=== PATIENT | female | born 1985 | race Caucasian/White ===

== ENCOUNTER 2016-07-02 01:44 | Inpatient (IN) | payer OTHER ==
[2016-07-02] MEDS ORDERED: NALOXONE 0.4 MG/ML 1 ML VIAL IV PRN (02:09)
[2016-07-02] MEDS ORDERED: ACETAMINOPHEN TAB 325 MG TAB PO PRN (02:09)
--- NOTE | 2016-07-02 02:18 | ED ---
Seizure HPI - General Stated Complaint: SEIZIRE Time Seen by Provider: 07/02/16 01:47 - Related Data Previous Rx's Medication Instructions Recorded Docusate [Colace] 100 mg PO DAILY #30 cap 08/23/15 FLUoxetine HCL [PROzac] 20 mg PO DAILY #20 cap 08/23/15 levETIRAcetam [Keppra] 1,000 mg PO Q12HR #60 tab 08/23/15 Allergies Allergy/AdvReac Type Severity Reaction Status Date / Time lorazepam [From Ativan] Allergy Anaphylaxis Verified 08/19/15 14:37 Review of Systems ROS Statement: Those systems with pertinent positive or pertinent negative responses have been documented in the HPI. ROS Other: All systems not noted in ROS Statement are negative. Past Medical History Past Medical History: Seizure Disorder Additional Past Medical History / Comment(s): Seizure disorder, anxiety, depression, bipolar disorder, chronic headache, right shoulder pain, osteoarthritis, scoliosis,"chronic backpain","head trauma d/t fall during seizure, stated has had 2 strokes not sure of dates, GI reflux, self-mutilation and the patient has had previous history of cutting herself History of Any Multi-Drug Resistant Organisms: MRSA Date of last positivie culture/[facility]: [facility] MDRO Source:: back Past Surgical History: Section Additional Past Surgical History / Comment(s): x3 c-sections,ovarian cyst removed,hemorrhoidectomy Past Anesthesia/Blood Transfusion Reactions: No Reported Reaction Additional Past Anesthesia/Blood Transfusion Reaction / Comment(s): clausterphobia Past Psychological History: Anxiety, Bipolar, Depression Additional Psychological History / Comment(s): pt stated feels depressed daily no interest in things does'nt want to eat,has trouble sleeping feels hopeless for present and future but stated does'nt have any thoughts of harming self. lives with 3 kids and fiancee.is independant,no outside services. Smoking Status: Current every day smoker Past Alcohol Use History: Rare Additional Past Alcohol Use History / Comment(s): has smoked for 13 years ,1/2 ppd. rare alcohold use Past Drug Use History: None Reported - Past Family History Father History Unknown: Yes Mother History Unknown: Yes Course Vital Signs 07/02/16 01:58 Temperature 97.3 F L Pulse Rate 64 Respiratory 14 Rate Blood Pressure 113/62 O2 Sat by Pulse 100 Oximetry Disposition Clinical Impression: Seizure Disposition: ADMITTED IP TO THIS HOSP Condition: Fair Referrals: Nonstaff,Physician [Primary Care Provider] - 1-2 days
[2016-07-02] MEDS ORDERED: LORazepam 2 MG/ML SYRINGE IV PRN (04:46)
[2016-07-02] MEDS: SODIUM CHLORIDE 0.9% 1,000 ML IV SCH (06:00)
[2016-07-02] MEDS ORDERED: HYDROcodone/APAP 5-325MG 1 EACH TAB PO PRN (07:27)
--- NOTE | 2016-07-02 08:40 | XR ---
EXAMINATION TYPE: XR cervical spine comp DATE OF EXAM: 07/02/2016 8:25 AM TECHNIQUE: Frontal, lateral, oblique, and open mouth view of the cervical spine are obtained. HISTORY: seizure with falls neck pain. COMPARISON: Outside CT cervical spine from yesterday FINDINGS: The cervical spine is visualized in its entirety from C1 thru the top of T1 level, it is s atisfactory in alignment without evidence of acute fracture or dislocation. The pre-vertebral soft t issue appears within normal limits. The C1-C2 articulation is within normal limits on the open mouth view. Vertebral body heights and disc space heights are maintained. The oblique images are within n ormal limits. Overlying soft tissue is unremarkable. IMPRESSION: No acute fracture or dislocation is seen in the cervical spine. No significant change fr om outside CT.
--- NOTE | 2016-07-02 08:42 | XR ---
EXAMINATION TYPE: XR orbit complete bilateral DATE OF EXAM: 07/02/2016 8:26 AM COMPARISON: CT brain August 19, 2015. Outside CT from yesterday. HISTORY: Seizure with left-sided orbital injury last night TECHNIQUE: Complete orbital series with both lateral projections as well as water's and Fernandez fron yesenia projection FINDINGS: Orbital floors and sims are intact. Nasal septum is slightly deviated to left of midline. No suspicious soft tissue swelling is seen. No suspicious paranasal sinus opacification is noted. IMPRESSION: No acute displaced orbital fracture identified.
[2016-07-02] MEDS: levETIRAcetam 500 MG TAB PO SCH ×2 (08:54→21:32)
[2016-07-02] MEDS ORDERED: FLUoxetine HCL 20 MG CAP PO SCH (09:00)
[2016-07-02] MEDS ORDERED: DOCUSATE 100 MG CAP PO SCH (09:00)
[2016-07-02 09:30] LABS: Basophils # (A) 0.1 k/uL (0-0.2); Basophils % (A) 1 %; CH 22.2; CHCM 29.3; Eosinophils # (A) 0.3 k/uL (0-0.7); Eosinophils % (A) 4 %; HCT 28.6 % (34.0-46.0); HDW 2.88; HGB 8.5 gm/dL (11.4-16.0); Hypochromasia Marked; Luc # (Auto) 0.17; Luc % (Auto) 2; Lymphocytes # (A) 2.9 k/uL (1.0-4.8); Lymphocytes % (A) 36 %; MCH 22.7 pg (25.0-35.0); MCHC 29.9 g/dL (31.0-37.0); Mean Platelet Volume 6.9; Microcytosis Slight; Monocytes # (A) 0.4 k/uL (0-1.0); Monocytes % (A) 5 %; Neutrophils # (A) 4.2 k/uL (1.3-7.7); Neutrophils % (A) 53 %; RBC 3.76 m/uL (3.80-5.40); RDW 15.8 % (11.5-15.5); WBC (Perox) 8.31
[2016-07-02 10:16] LABS: ALT 29 U/L (9-52); AST 18 U/L (14-36); Alkaline Phosphatase 61 U/L (38-126); Anion Gap 5 mmol/L; Blood Urea Nitrogen 13 mg/dL (7-17); Calcium 8.3 mg/dL (8.4-10.2); Carbon Dioxide 24 mmol/L (22-30); Chloride 113 mmol/L (98-107); Glucose 82 mg/dL (74-99); Non-African American GFR(MDRD) >60 (>60 ml/min/1.73 sqM); Potassium 4.1 mmol/L (3.5-5.1); Sodium 142 mmol/L (137-145); Total Bilirubin 1.1 mg/dL (0.2-1.3); Total Protein 5.7 g/dL (6.3-8.2)
--- NOTE | 2016-07-02 11:58 | HP ---
DATE OF ADMISSION: CHIEF COMPLAINT: A 30-year-old white female with acute seizure and traumatic head injury after falling after having seizure at home and was admitted with status epilepticus. States she came to the emergency room due to seizures and status epilepticus. Apparently she fell and hit her head but no x-rays were done. She had intense swelling and pain around her orbit and neck pain. No chest pain or shortness of breath. No lightheadedness, syncope. Thinks she takes Colace, Prozac, Keppra. ALLERGIES: ATIVAN. REVIEW OF SYSTEMS: Fourteen-point review of systems negative except for HPI. PAST MEDICAL HISTORY: Seizure disorder, anxiety, depression, bipolar, chronic scoliosis, chronic headache, right shoulder pain, osteoarthritis, seizures. GI reflux, MRSA. SURGERIES: x3. Ovarian cyst, hemorrhoidectomy. States she does not have any thoughts of harming herself. Lives with three kids and fiancee. She is independent. No outside source. Is current every day smoker. States she has been compliant with her seizure medications. Half pack of cigarettes a day for many years. Rare alcohol use. FAMILY HISTORY: Father ( ). Temperature is 97.3, pulse 64, respiratory 14 to 12, blood pressure 113/62. O2 is 100% on room air. She is thin, cachectic. Some mild tenderness periorbital area and cervical. CARDIOVASCULAR: S1 and S2. LUNGS: Clear. GI: Soft. HEMATOLOGIC: Negative Homans. ASSESSMENT: 1. Acute seizure, status epilepticus. 2. Facial contusions and cervical contusion. Order x-rays, continue with seizure medication replacement. Await Dr. Russo. Ativan is not working for seizures will give her Valium instead.
[2016-07-02 12:06] LABS: % Iron Saturation 10.1 % (20-50)
[2016-07-02] MEDS: DIAZEPAM 5 MG/ML 2 ML SYRINGE IVP PRN ×2 (12:42→12:58)
[2016-07-02] MEDS ORDERED: levETIRAcetam IV 1,000 MG in SALINE 1 100ML.BAG IVPB STA (13:23)
[2016-07-02] MEDS ORDERED: VALPROATE SODIUM 1,000 MG in SODIUM CHLORIDE 0.9% 50 ML IVPB STA (13:48)
[2016-07-02] MEDS ORDERED: PHENobarbital SODIUM 65 MG/ML 1 ML VIAL IV STA (13:49)
[2016-07-02] MEDS ORDERED: PROPOFOL 50 ML IV ONE ×3 (14:01→20:15)
[2016-07-02] MEDS ORDERED: SUCCINYLCHOLINE CHLORIDE 100 MG/5 ML SYR IV ONE (14:03)
[2016-07-02] MEDS ORDERED: CISATRACURIUM 2 MG/ML 5 ML VIAL IV ONE (14:11)
--- NOTE | 2016-07-02 14:51 | P.CNNES ---
History of Present Illness Consult date: 07/02/16 Reason for Consult: Patient admitted with seizure disorder. History of Present Illness: This patient is a 30-year-old right-handed white female who was admitted to [facility] yesterday after having a seizure at her place of employment. He shouldn't has been working at [employer] and according to the had a seizure while at work. She was taken to the emergency room at [facility] where she underwent a computed tomography scan of the brain. CAT scan of the brain failed to reveal any evidence of acute stroke or hemorrhage. There was no evidence of intracerebral hemorrhage. She was then transferred to the emergency room at [facility] for further neurological evaluation. She was seen in the ER by Dr. Javier. She subsequently underwent x -ray of the cervical spine and orbits both of which came back negative for any evidence of acute fracture or dislocation. She was admitted to the hospital yesterday. This morning she was alert and oriented 3. She was speaking with the nursing staff. At about 10 AM the patient went into a generalized tonic- clonic seizure that lasted 5-10 seconds in duration. She was given 10 mg of Valium. Shortly thereafter she went into a second breakthrough seizure lasting 10 seconds in duration. She was arching and seem to be very rigid. She continued to have frequent spells and was given a second dose of Valium 10 mg IV push. Patient is unable to take Ativan as she has an ALLERGY to this medication. According to the the Ativan actually worsens her seizures. Since the patient continued to have frequent and recurrent seizures she was found to have evidence of status epilepticus. She was intubated and transferred to the intensive care unit where she is now closely being monitored. According to the she has not had frequent seizures in several years. She has undergone extensive epilepsy monitoring at [facility] a few years ago. At that time she was taken off of all of her anticonvulsants except Keppra. She apparently does take her Keppra on a regular basis at thousand milligrams twice a day. The patient was started on IV Depacon as she continued to have frequent seizures. We will maintain her on IV Depacon at thousand milligrams IV piggyback every 12 hours. She is to continue on her current dose of Keppra thousand milligrams IV piggyback every 12 hours. She was given 1 dose of phenobarbital in the ICU of 30 mg for treatment of status epilepticus. A routine EEG has been ordered and we're waiting the tech to complete the study this morning. The patient has been placed on Diprivan by Dr. Flores and for further management of her intubation. Her respiratory status at this time appears to be stable. She will likely require a chest x-ray as well. We will continue the patient on current anticonvulsant medications in IV form. We will obtain a stat EEG today and this will be reviewed. Patient does have a history of pseudoseizures however frequent repetitive seizures today are more suggestive of status epilepticus. Her overall prognosis at this time remains very guarded. Case was discussed at length today with the patient's at bedside. He was updated on her very critical condition at this time. We will continue close neurological follow-up this patient in the intensive care unit. Case was discussed at length with the patient's . He was updated on her overall neurological status and condition at this time. Neurology is now been consulted for further evaluation and recommendations. Review of Systems Constitutional: Denies chills, Denies fever Eyes: denies blurred vision, denies pain Ears, nose, mouth and throat: Denies headache, Denies sore throat Cardiovascular: Denies chest pain, Denies shortness of breath Respiratory: Denies cough Gastrointestinal: Denies abdominal pain, Denies diarrhea, Denies nausea, Denies vomiting Genitourinary: Denies dysuria, Denies hematuria Musculoskeletal: Denies myalgias Integumentary: Denies pruritus, Denies rash Neurological: Reports change in mentation, Reports confusion (Review), Reports convulsions, Reports head injury, Reports seizures (Violent Karan the patient reported to the ICU for the floor and needed to get the EEG in her status and Did speak to someone and over now I don't know who was on-call nurse will yet wearing ICU 611), Denies numbness, Denies weakness Psychiatric: Denies anxiety, Denies depression Endocrine: Denies fatigue, Denies weight change Past Medical History Past Medical History: Seizure Disorder Additional Past Medical History / Comment(s): Seizure disorder, anxiety, depression, bipolar disorder, chronic headache, right shoulder pain, osteoarthritis, scoliosis,"chronic backpain","head trauma d/t fall during seizure, stated has had 2 strokes not sure of dates, GI reflux, self-mutilation and the patient has had previous history of cutting herself History of Any Multi-Drug Resistant Organisms: MRSA Date of last positivie culture/infection: 2013, (questionably at [facility], per patient) MDRO Source:: back Past Surgical History: Section Additional Past Surgical History / Comment(s): x3 c-sections,ovarian cyst removed,hemorrhoidectomy Past Anesthesia/Blood Transfusion Reactions: No Reported Reaction Additional Past Anesthesia/Blood Transfusion Reaction / Comment(s): clausterphobia Past Psychological History: Anxiety, Bipolar, Depression Additional Psychological History / Comment(s): pt stated feels depressed daily no interest in things does'nt want to eat,has trouble sleeping feels hopeless for present and future but stated does'nt have any thoughts of harming self. lives with 3 kids and fiancee.is independant,no outside services. Smoking Status: Current every day smoker Past Alcohol Use History: Rare Additional Past Alcohol Use History / Comment(s): has smoked for 13 years ,1/2 ppd. rare alcohold use Past Drug Use History: None Reported - Past Family History Father History Unknown: Yes Family Medical History: Congestive Heart Failure (CHF) Mother History Unknown: Yes Medications and Allergies Home Medications Medication Instructions Recorded Confirmed Type Docusate [Colace] 100 mg PO BID 07/02/16 07/02/16 History FLUoxetine HCL [PROzac] 40 mg PO DAILY 07/02/16 07/02/16 History Gabapentin [Neurontin] 300 mg PO TID 07/02/16 07/02/16 History hydrOXYzine PAMOATE [Vistaril] 50 mg PO TID 07/02/16 07/02/16 History Allergies Allergy/AdvReac Type Severity Reaction Status Date / Time lorazepam [From Ativan] Allergy Anaphylaxis Verified 07/02/16 08:24 tramadol Allergy Rash/Hives Verified 07/02/16 05:44 Physical Examination - Vital Signs Vital Signs: Vital Signs Temp Pulse Pulse Resp BP BP Pulse Ox 07/02/16 07:00 98.7 F 59 L 16 98/63 99 07/02/16 05:40 97.8 F 70 16 105/69 99 07/02/16 04:51 98 F 72 18 111/75 98 07/02/16 04:00 64 16 99/62 97 Intake and Output 07/01/16 07/02/16 07/02/16 22:59 06:59 14:59 Intake Total 0 Balance 0 Intake: Oral 0 Other: Voiding Method Toilet Weight 62.142 kg - Constitutional General appearance: average body habitus, cooperative - EENT EENT: PERRL, mucous membranes moist - Respiratory Respiratory: lungs clear, normal breath sounds - Cardiovascular Cardiovascular: regular rate, normal S1, normal S2 Extremities: no peripheral edema bilaterally - Gastrointestinal Gastrointestinal: normoactive bowel sounds - Integumentary Integumentary: normal - Neurologic Cranial nerve examination: PERRL, EOMI, V1/V2/V3 grossly intact, tongue midline , intact gag reflex, intact corneal reflex, normal palatal elevation Speech examination: intact Sensorimotor examination: intact, seizure Detailed motor examination: grossly full strength in all extremities Motor examination - right side: 5/5: biceps, triceps, wrist flexion, wrist extension, cardiovascular rn, hip flexors, knee extensors, dorsiflexion, toe extension (EHL) , plantarflexion Motor examination - left side: 5/5: biceps, triceps, wrist flexion, wrist extension, cardiovascular rn, hip flexors, knee extensors, dorsiflexion, toe extension (EHL) , plantarflexion Detailed sensory examination: intact Posture: rigid Reflex and gait examination: intact Reflexes: 1+: ankle, bicep, knee, tricep - Musculoskeletal Musculoskeletal: no pain - Psychiatric Psychiatric: mood/affect appropriate, cooperative Results - Laboratory Findings CBC and BMP: 07/02/16 08:52 07/02/16 08:52 Assessment and Plan (1) 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 According to the who provided the medical history she has a history of underlying seizure disorder. She has been extensively evaluated for seizures at several institutions including [facility] epilepsy monitoring unit. She was diagnosed with underlying mixed seizure disorder. She has been taking Keppra 1000 mg twice a day on a regular basis for seizure prophylaxis. She had a breakthrough seizure yesterday at work and was taken to be local emergency room at [facility]. Patient was then transferred to the current [facility] for further management. Patient has been taking Keppra on a regular basis. Her blood level was drawn this morning and is still pending. Soon after admission the patient was noted to be quite alert and oriented as per the nursing staff on the fourth floor. She was answering questions appropriately. Early this morning at about 10 AM the patient had a generalized tonic-clonic seizure that lasted 10 seconds in duration. This was followed by several other breakthrough seizures. She was given Valium 10 mg 2. The patient continued to have frequent breakthrough seizures which short interval of normal time in between. She developed symptoms of acute status epilepticus. She was transferred to the intensive care unit now and has been intubated. The patient did undergo a computed tomography scan of the brain yesterday at [facility]. This CAT scan was reported negative for any acute changes of stroke or acute hemorrhage. She is now been transferred to the intensive care unit and is intubated. Case was discussed today with Dr. baker in. She has been placed on Diprivan. Her seizure activity has now abated. She will require close neuro monitoring in the intensive care unit. As noted she does have a history of pseudoseizures in the past as well as generalized epilepsy. She has been on various other anticonvulsants over the year but is currently only on monotherapy with Keppra. We will continue the patient on IV Keppra. We will also add IV Depacon. She is now been placed on Diprivan as per the recommendations of Dr. baker and for further management of her pulmonary status. We will continue close neurological follow-up this patient in the intensive care unit. Case was discussed earlier today with the patient's at bedside. All of his questions answered. He is aware of her guarded condition. Her overall prognosis at this time remains very guarded. Time with Patient: Greater than 30
[2016-07-02 15:03] LABS: ABG HCO3 21 mmol/L (21-25); ABG PCO2 35 mmHg (35-45); ABG PO2 241 mmHg (83-108); ABG TCO2 22 mmol/L (19-24)
[2016-07-02 15:04] LABS: ABG Base Excess -2.6 mmol/L
[2016-07-02 15:30] LABS: Appearance,Urine Clear (Clear); Bilirubin,Urine Negative (Negative); Glucose,Urine (UA) Negative (Negative); Ketones,Urine Negative (Negative); Leukocyte Esterase,Urine Negative (Negative); Nitrite,Urine Negative (Negative); Protein,Urine Negative (Negative); Specific Gravity,Urine 1.014 (1.001-1.035); UA Billing (MACRO vs. MICRO) CHEM; Urobilinogen,Urine <2.0 mg/dL (<2.0)
--- NOTE | 2016-07-02 16:11 | P.CNPUL ---
History of Present Illness Consult date: 07/02/16 Chief complaint: Status epilepticus History of present illness: 89-year-old female patient, known history of seizure disorder, was brought into the intensive care unit with status epilepticus. I was asked to attend on this patient emergently knowing that she was actively seizing. I was told that she has been on and off seizing for the past 1 hour. Immediately after my arrival to the ICU, I saw this patient actively seizing with tonic clonic seizure activity. I was also informed by the nurses that the patient had already received a total of 20 mg of Valium without any improvement. At that point, I immediately put the patient on Diprivan. She was given a total of 50 mg of IV Diprivan, following that she had to be paralyzed briefly with succinylcholine, the patient was intubated and then placed on a mechanical ventilator. Meanwhile , Diprivan was continued at a dose of 50 mics per KG per minutes. Following this intervention, the seizure activity stopped. Even after the succinylcholine wearing off, no seizure activity was noted. A stat EEG was ordered and is currently under progress. Meanwhile, it is a triple-lumen catheter and Artline catheter post intubation. The patient remained hemodynamically stable throughout the event. Upon further inquiry, the patient had a seizure while at work at [employer]. She was brought in to the emergency department at [facility] where she underwent a CAT scan of the brain that failed to show any hemorrhage or stroke. She was transferred to our hospital for further neurologic evaluation. The patient had an x-ray of her cervical spine that came back negative. She was admitted to the hospital and this morning she apparently she was alert and oriented 3. She was speaking to the nursing staff. Subsequently she started having generalized tonic-clonic seizures and ultimately this progressed into status epilepticus. Dr. Russo, the neurologist, was at the bedside. I consulted with him regarding treatment. I was further informed that she has had an extensive epilepsy monitoring at [facility] a few years back. At that time she was taken off all of her dye, bowels and medication with the escalation of Keppra. She apparently takes A Regular Basis. Here in the ICU, the Patient Was Started on IV Depacon and Thousand Milligrams Every 12 Hours. Her Keppra Was Also Continued at a Dose of 1 G Every 12 Hours. She Was Given a Dose of Phenobarbital in the ICU 30 Mg While Having the the seizures. Review of Systems ROS unobtainable: due to endotracheal tube Past Medical History Past Medical History: Seizure Disorder Additional Past Medical History / Comment(s): Seizure disorder, anxiety, depression, bipolar disorder, chronic headache, right shoulder pain, osteoarthritis, scoliosis,"chronic backpain","head trauma d/t fall during seizure, stated has had 2 strokes not sure of dates, GI reflux, self-mutilation and the patient has had previous history of cutting herself History of Any Multi-Drug Resistant Organisms: MRSA Date of last positivie culture/infection: 2013, (questionably at [facility], per patient) MDRO Source:: back Past Surgical History: Section Additional Past Surgical History / Comment(s): x3 c-sections,ovarian cyst removed,hemorrhoidectomy Past Anesthesia/Blood Transfusion Reactions: No Reported Reaction Additional Past Anesthesia/Blood Transfusion Reaction / Comment(s): clausterphobia Past Psychological History: Anxiety, Bipolar, Depression Additional Psychological History / Comment(s): pt stated feels depressed daily no interest in things does'nt want to eat,has trouble sleeping feels hopeless for present and future but stated does'nt have any thoughts of harming self. lives with 3 kids and fiancee.is independant,no outside services. Smoking Status: Current every day smoker Past Alcohol Use History: Rare Additional Past Alcohol Use History / Comment(s): has smoked for 13 years ,1/2 ppd. rare alcohold use Past Drug Use History: None Reported - Past Family History Father History Unknown: Yes Family Medical History: Congestive Heart Failure (CHF) Mother History Unknown: Yes Medications and Allergies Home Medications Medication Instructions Recorded Confirmed Type Docusate [Colace] 100 mg PO BID 07/02/16 07/02/16 History FLUoxetine HCL [PROzac] 40 mg PO DAILY 07/02/16 07/02/16 History Gabapentin [Neurontin] 300 mg PO TID 07/02/16 07/02/16 History hydrOXYzine PAMOATE [Vistaril] 50 mg PO TID 07/02/16 07/02/16 History Allergies Allergy/AdvReac Type Severity Reaction Status Date / Time lorazepam [From Ativan] Allergy Anaphylaxis Verified 07/02/16 08:24 tramadol Allergy Rash/Hives Verified 07/02/16 05:44 Physical Exam Vitals: Vital Signs Temp Pulse Pulse Resp BP BP Pulse Ox 07/02/16 07:00 98.7 F 59 L 16 98/63 99 07/02/16 05:40 97.8 F 70 16 105/69 99 07/02/16 04:51 98 F 72 18 111/75 98 07/02/16 04:00 64 16 99/62 97 Intake and Output 07/02/16 07/02/16 07/02/16 06:59 14:59 22:59 Intake Total 0 Balance 0 Intake: Oral 0 Other: Voiding Method Toilet Weight 62.142 kg At this point in time the patient is intubated on mechanical ventilator.Head exam was generally normal. There was no scleral icterus or corneal arcus. Mucous membranes were moist.Neck was supple and without jugular venous distension, thyromegaly, or carotid bruits. Carotids were easily palpable bilaterally. There was no adenopathy. Patient has poor dentition and poor oral hygiene. She is intubated on a mechanical ventilator. Orogastric and orotracheal tube are both in place.Lungs were clear to auscultation and percussion, and with normal diaphragmatic excursion. No wheezes or rales were noted. Cardiac exam revealed the PMI to be normally situated and sized. The rhythm was regular and no extrasystoles were noted during several minutes of auscultation. The first and second heart sounds were normal and physiologic splitting of the second heart sound was noted. There were no murmurs, rubs, clicks, or gallops.Abdominal exam revealed normal bowel sounds. The abdomen was soft, non-tender, and without masses, organomegaly, or appreciable enlargement of the abdominal aorta.Examination of the extremities revealed easily palpable radial, femoral and pedal pulses. There was no cyanosis, clubbing or edema. Neurologically her pupils around 6 mm in size and reactive to light. She is having no facial asymmetry. Motor function cannot be assessed. No hyperreflexia. No clonus. No Babinski. Results - Laboratory Findings CBC and BMP: 07/02/16 08:52 07/02/16 08:52 ABG ABG pH 7.40 (7.35-7.45) 07/02/16 14:45 ABG pCO2 35 mmHg (35-45) 07/02/16 14:45 ABG pO2 241 mmHg (83-108) H 07/02/16 14:45 ABG O2 Saturation 100.0 % (94-97) H 07/02/16 14:45 Abnormal lab findings: Abnormal Labs 07/02/16 07/02/16 07/02/16 08:52 08:52 08:52 RBC 3.76 L Hgb 8.5 L Hct 28.6 L MCV 76.0 L MCH 22.7 L MCHC 29.9 L RDW 15.8 H ABG pO2 ABG O2 Saturation Chloride 113 H Plasma Lactic Acid Jesse 0.6 L Calcium 8.3 L % Saturation Total Protein 5.7 L Albumin 3.1 L 07/02/16 07/02/16 08:52 14:45 RBC Hgb Hct MCV MCH MCHC RDW ABG pO2 241 H ABG O2 Saturation 100.0 H Chloride Plasma Lactic Acid Jesse Calcium % Saturation 10.1 L Total Protein Albumin - Diagnostic Findings Chest x-ray: image reviewed Assessment and Plan Plan: Assessment 1 status epilepticus, event as mentioned above, failed to respond to Valium and following that the patient was placed on IV Diprivan drip in addition to a dose of phenobarbital and started on a combination of Keppra and Depacon. She is currently free of any seizures and EEG is in progress. Neurology is on the case 2 acute respiratory failure secondary to above-mentioned events 3 history of seizure disorder/epilepsy 4 chronic anxiety/depression/bipolar disorder 5 chronic anemia 6 chronic back pain 7 history of self-mutilation and self cutting 8 questionable history of CVA, current CAT scan is not showing any acute abnormalities Plan Continued IV Diprivan. Start the patient on IV Depacon and IV Keppra the doses as mentioned earlier. Stat EEG to make sure there is no ongoing seizure activity. Continue vent support and obtain a post intubation chest x-ray and blood gas and appropriate vent settings will be done. Obtain a urine drug screen. Repeat CAT scan of the brain. Heparin subcu for DVT prophylaxis. IV Protonix. Neurology follow-up. Condition is critical. We'll continue to follow. Time with Patient: Greater than 30
--- NOTE | 2016-07-02 16:11 | XR ---
EXAMINATION TYPE: XR chest 1V portable DATE OF EXAM: 07/02/2016 3:00 PM Comparison: 08/22/2015 Clinical History: 30-year-old female s/p intubation Findings: ET tube tip is at the level of the medial clavicular heads. NG tube courses below the diaphragm. Hear t is normal size. Aorta and pulmonary vasculature within normal limits. No consolidation, pneumothora x, or pleural effusion. Impression: 1. ET tube tip at the level of the medial clavicular heads, satisfactory for the time being. Attentio n on follow-up. 2. NG tube within the stomach.
[2016-07-02] MEDS ORDERED: MIDAZOLAM HCL 100 MG in SODIUM CHLORIDE 0.9% 80 ML IV SCH (16:30)
--- NOTE | 2016-07-02 16:32 | PCN ---
DATE OF PROCEDURE: PROCEDURE PERFORMED: Intubation. PREOPERATIVE DIAGNOSIS: Status epilepticus. POSTOPERATIVE DIAGNOSIS: Status epilepticus. This intubation was done and the intensive care unit. The patient was already sedated with Diprivan and her seizures were controlled. I used a #4 Queen blade to visualize the vocal cord and other direct visualization and #8 orotracheal tube was induced into the upper trachea past the vocal cords. The position of the tube was confirmed by CO2 detector. The balloon was inflated and the breath sounds are equal bilaterally. No oxygen desaturation during the procedure. No bedside complications. x-ray postprocedure showed adequate positioning of the tube. DIAMOND
--- NOTE | 2016-07-02 16:34 | PCN ---
DATE OF PROCEDURE: PREOPERATIVE DIAGNOSIS: Status epilepticus. POSTOPERATIVE DIAGNOSIS: Status epilepticus. PROCEDURE PERFORMED: Insertion of triple lumen catheter. TRIPLE LUMEN CATHETER PLACEMENT Indication: Hemodynamic monitoring/Intravenous access. A time-out was completed verifying correct patient, procedure, site, positioning, and implant(s) or special equipment if applicable. The patient was placed in a dependent position appropriate for triple lumen catheter placement based on the vein to be cannulated. The patient's right groin was prepped and draped in sterile fashion. 1% Lidocaine was used to anesthetize the surrounding skin area. A triple lumen 9F Cordis catheter was introduced into the common femoral vein using Seldinger technique. The catheter was threaded smoothly over the guide wire and appropriate blood return was obtained. Each lumen of the catheter was evacuated of air and flushed with sterile saline. The catheter was then sutured in place to the skin and a sterile dressing applied. Perfusion to the extremity distal to the point of catheter insertion was checked and found to be adequate. No bedside complications or bleeding.
--- NOTE | 2016-07-02 16:34 | PCN ---
DATE OF PROCEDURE: PREOPERATIVE DIAGNOSIS: Status epilepticus. POSTOPERATIVE DIAGNOSIS: Status epilepticus. PROCEDURE PERFORMED: Insertion of a an arterial line catheter. ARTERIAL LINE PLACEMENT Indication: Hemodynamic monitoring. A time-out was completed verifying correct patient, procedure, site, positioning, and implant(s) or special equipment if applicable. Burt's test was performed to ensure adequate perfusion. The patient's right was prepped and draped in sterile fashion. 1% Lidocaine was used to anesthetize the area. An 18G Arrow arterial line was introduced into the radial artery. The catheter was threaded over the guide wire and the needle was removed with appropriate pulsatile blood return. Blood loss was minimal. The catheter was then sutured in place to the skin and a sterile dressing applied. Perfusion to the extremity distal to the point of catheter insertion was checked and found to be adequate. The patient tolerated the procedure well and there were no complications. No bedside complications or bleeding.
[2016-07-02] MEDS: PROPOFOL 500 MG in EMPTY BAG 1 BAG IV SCH ×3 (16:56→22:53)
[2016-07-02] MEDS: GABAPENTIN 300 MG CAP PO SCH ×2 (16:57→22:34)
[2016-07-02] MEDS: hydrOXYzine PAMOATE 25 MG CAP PO SCH ×2 (16:57→22:34)
[2016-07-02] MEDS: HEPARIN SODIUM,PORCINE 5,000 UNIT/ML 1 ML VIAL SQ SCH (16:58)
[2016-07-02] MEDS: PANTOPRAZOLE 40 MG/10 ML VIAL IVP SCH (16:58)
--- NOTE | 2016-07-02 17:31 | EEG ---
DATE OF SERVICE: 07/02/2016 INDICATIONS FOR EXAMINATION: This patient is a 30 -year-old female admitted to the hospital with multiple recurrent seizures. The patient is currently intubated on the ventilator in the Intensive Care Unit with diagnosis of status epilepticus. AGE: 30Y EEG FINDINGS: A routine 21 channel awake digital EEG recording was accomplished utilizing the 10-20 international system with bipolar and referential montages. The background activity in the most alert resting state consists of a low to medium amplitude, fairly well developed and well sustained 6 Hz activity over the posterior head regions. This posterior rhythm attenuates to eye opening. There is a small amount of low amplitude 18-20 Hz beta activity seen maximally over the anterior head regions. Muscle and movement artifact was observed on a few occasions during the tracing. Hyperventilation was not performed. Photic stimulation at flash frequencies of 2-30 Hz produced a good symmetrical occipital driving response. No epileptiform discharges were seen. IMPRESSION: This EEG is moderately abnormal in a diffuse fashion due to slowing of the EEG background. The EEG failed to reveal any evidence of focal, lateralized or epileptiform abnormalities. If clinically indicated, a follow-up EEG is recommended. Clinical correlation is recommended.
--- NOTE | 2016-07-02 18:59 | CT ---
EXAMINATION TYPE: CT brain wo con DATE OF EXAM: 07/02/2016 6:44 PM COMPARISON: 08/19/2015 HISTORY: 30-year-old female with seizures today. History of seizures. TECHNIQUE: Examination was done in axial plane without intravenous contrast. Coronal and sagittal r econstructions performed. CT DLP: 995.50 mGycm Automated exposure control for dose reduction was used. FINDINGS: There is no evidence of acute intracranial hemorrhage, acute ischemic changes, mass, mass-effect, or extra-axial fluid collection. There is no effacement of cerebral sulci or basal subarachnoid cister ns. There is no hydrocephalus. There is no midline shift. Marie-white matter distinction is preserv ed. Incidentally, there is 5 mm of right-sided tonsillar herniation. No peglike configuration. The patient states a slightly divergent suggesting underlying strabismus. Paranasal sinuses and masto id air cells are well pneumatized. IMPRESSION: 1. No acute intracranial abnormality seen. 2. 5 mm of right cerebellar tonsillar herniation. This is indeterminate between benign cerebellar ton sillar ectopia and Chiari malformation. The former is favored given the lack of tonsillar beaking. Co rrelate with patient's symptoms.
[2016-07-02] MEDS: ALBUTEROL NEBULIZED 2.5 MG/3 ML INHALATION SCH (19:07)
[2016-07-02 19:42] VITALS: BP 103/57
[2016-07-02] MEDS: CHLORHEXIDINE GLUCONATE 15 ML CUP MUCOUS MEM SCH (21:32)
[2016-07-02] MEDS: VALPROATE SODIUM 1,000 MG in SODIUM CHLORIDE 0.9% 50 ML IVPB SCH (21:32)
[2016-07-02] MEDS: DOCUSATE 100 MG CAP PO SCH (22:34)
[2016-07-03] MEDS: HEPARIN SODIUM,PORCINE 5,000 UNIT/ML 1 ML VIAL SQ SCH ×3 (00:24→17:05)
[2016-07-03] MEDS: PROPOFOL 500 MG in EMPTY BAG 1 BAG IV SCH ×7 (01:41→19:03)
[2016-07-03] MEDS: SODIUM CHLORIDE 0.9% 1,000 ML IV SCH (03:59)
[2016-07-03 05:04] LABS: Anisocytosis Slight; Basophils # (A) 0.1 k/uL (0-0.2); Basophils % (A) 1 %; CH 22.5; CHCM 30.1; Eosinophils # (A) 0.1 k/uL (0-0.7); Eosinophils % (A) 2 %; HCT 28.2 % (34.0-46.0); HDW 3.09; HGB 8.7 gm/dL (11.4-16.0); Hypochromasia Marked; Luc # (Auto) 0.08; Luc % (Auto) 2; Lymphocytes # (A) 1.8 k/uL (1.0-4.8); Lymphocytes % (A) 32 %; MCH 23.2 pg (25.0-35.0); MCHC 30.8 g/dL (31.0-37.0); MCV 75.2 fL (80.0-100.0); Mean Platelet Volume 6.4; Microcytosis Slight; Monocytes # (A) 0.2 k/uL (0-1.0); Monocytes % (A) 4 %; Neutrophils # (A) 3.4 k/uL (1.3-7.7); Neutrophils % (A) 60 %; RBC 3.75 m/uL (3.80-5.40); WBC 5.6 k/uL (3.8-10.6); WBC (Perox) 5.76
[2016-07-03 05:11] LABS: ABG Base Excess -3.1 mmol/L; ABG HCO3 21 mmol/L (21-25); ABG PCO2 32 mmHg (35-45); ABG PH 7.43 (7.35-7.45); ABG PO2 246 mmHg (83-108); ABG TCO2 22 mmol/L (19-24)
[2016-07-03 05:22] LABS: Anion Gap 7 mmol/L; Blood Urea Nitrogen 12 mg/dL (7-17); Calcium 8.3 mg/dL (8.4-10.2); Carbon Dioxide 23 mmol/L (22-30); Chloride 113 mmol/L (98-107); Glucose 72 mg/dL (74-99); Magnesium 2.3 mg/dL (1.6-2.3); Non-African American GFR(MDRD) >60 (>60 ml/min/1.73 sqM); Phosphorous 3.7 mg/dL (2.5-4.5); Potassium 3.9 mmol/L (3.5-5.1); Sodium 143 mmol/L (137-145)
--- NOTE | 2016-07-03 07:15 | XR ---
EXAMINATION TYPE: XR chest 1V portable DATE OF EXAM: 07/03/2016 6:42 AM COMPARISON: 07/02/2016 HISTORY: SOB, Follow Up FINDINGS: Indwelling tubes and catheters are unchanged. No infiltrates are seen at this time. Stable appearance of the cardio-mediastinal structures at this time. Pleural effusion unchanged. IMPRESSION: 1. Stable portable chest. Clinical correlation and follow up until resolution is recommended.
[2016-07-03] MEDS: ALBUTEROL NEBULIZED 2.5 MG/3 ML INHALATION SCH ×4 (07:48→18:55)
[2016-07-03] MEDS ORDERED: POTASSIUM CHLORIDE ORAL LIQUID 40 MEQ/30 ML CUP NG-TUBE SCH (08:00)
[2016-07-03] MEDS: PANTOPRAZOLE 40 MG/10 ML VIAL IVP SCH (08:47)
[2016-07-03] MEDS: CHLORHEXIDINE GLUCONATE 15 ML CUP MUCOUS MEM SCH (08:48)
[2016-07-03] MEDS: GABAPENTIN 300 MG CAP PO SCH ×2 (08:48→17:05)
[2016-07-03] MEDS: levETIRAcetam 500 MG TAB PO SCH (08:48)
[2016-07-03] MEDS ORDERED: FLUoxetine HCL 20 MG CAP PO SCH (09:00)
[2016-07-03] MEDS: DOCUSATE 100 MG CAP PO SCH (10:01)
[2016-07-03] MEDS: VALPROATE SODIUM 1,000 MG in SODIUM CHLORIDE 0.9% 50 ML IVPB SCH (10:05)
[2016-07-03 11:18] VITALS: BMI 22.8
[2016-07-03] MEDS: hydrOXYzine PAMOATE 25 MG CAP PO SCH ×2 (11:28→17:05)
[2016-07-03 15:00] VITALS: RESP 16
--- NOTE | 2016-07-03 15:51 | P.PN ---
Subjective Principal diagnosis: Status epilepticus and respiratory failure 30-year-old female patient, known history of seizure disorder, was brought into the intensive care unit with status epilepticus. I was asked to attend on this patient emergently knowing that she was actively seizing. I was told that she has been on and off seizing for the past 1 hour. Immediately after my arrival to the ICU, I saw this patient actively seizing with tonic clonic seizure activity. I was also informed by the nurses that the patient had already received a total of 20 mg of Valium without any improvement. At that point, I immediately put the patient on Diprivan. She was given a total of 50 mg of IV Diprivan, following that she had to be paralyzed briefly with succinylcholine, the patient was intubated and then placed on a mechanical ventilator. Meanwhile , Diprivan was continued at a dose of 50 mics per KG per minutes. Following this intervention, the seizure activity stopped. Even after the succinylcholine wearing off, no seizure activity was noted. A stat EEG was ordered and is currently under progress. Meanwhile, it is a triple-lumen catheter and Artline catheter post intubation. The patient remained hemodynamically stable throughout the event. Upon further inquiry, the patient had a seizure while at work at [employer]. She was brought in to the emergency department at [facility] where she underwent a CAT scan of the brain that failed to show any hemorrhage or stroke. She was transferred to our hospital for further neurologic evaluation. The patient had an x-ray of her cervical spine that came back negative. She was admitted to the hospital and this morning she apparently she was alert and oriented 3. She was speaking to the nursing staff. Subsequently she started having generalized tonic-clonic seizures and ultimately this progressed into status epilepticus. Dr. Russo, the neurologist, was at the bedside. I consulted with him regarding treatment. I was further informed that she has had an extensive epilepsy monitoring at [facility] a few years back. At that time she was taken off all of her dye, bowels and medication with the escalation of Keppra. She apparently takes A Regular Basis. Here in the ICU, the Patient Was Started on IV Depacon and Thousand Milligrams Every 12 Hours. Her Keppra Was Also Continued at a Dose of 1 G Every 12 Hours. She Was Given a Dose of Phenobarbital in the ICU 30 Mg While Having the the seizures. Patient was reevaluated today on 07/03/2016, patient remains on mechanical ventilation, I took her off propofol today, and weed the patient, and she was about to be extubated, however the patient developed an episode of another seizure hence placed back on propofol, and decided not to reintubate the patient unless she is completely controlled. Patient is back on mechanical ventilation with propofol drip, and the neurologist is to evaluate her again, I reviewed all her labs, and the level of Keppra and the level of Depakote seems to be appropriate and therapeutic. CBC was reviewed today hemoglobin is 8.7, ABG showed a pO2 of 246 pCO2 of 32 pH of 7.43 patient was placed down to 40% FiO2. Basic metabolic profile is relatively normal. CT of the brain on admission was unremarkable. Chest x-ray today is also unremarkable. Objective - Vital Signs Vital signs: Vital Signs Temp 97.8 F 07/03/16 12:00 Pulse 57 L 07/03/16 14:30 Resp 16 07/03/16 14:30 BP 103/57 07/02/16 18:00 Pulse Ox 100 07/03/16 14:30 Intake & Output 07/02/16 07/03/16 07/03/16 18:59 06:59 18:59 Intake Total 250 1507.955 892.872 Output Total 500 1463 760 Balance -250 44.955 132.872 Weight 62.9 kg 62.142 kg Intake: IV 200 1250 800 Sodium Chloride 0.9% 1, 200 1200 800 000 ml @ 20 mls/hr IV . Q24H AZUL Rx#:[id number] Valproate Sodium 1,000 mg 50 In Sodium Chloride 0.9% 50 ml @ 50 mls/hr IVPB ONCE [facility] Rx#:[id number] Intake, IV Titration 50 197.955 92.872 Amount Midazolam HCl 100 mg In 13.764 Sodium Chloride 0.9% 80 ml @ 0.02 MG/KG/HR 1.24 mls/hr IV .Q24H [facility]UL Rx#: [id number] Propofol 500 mg In Empty 50 184.191 92.872 Bag 1 bag @ Titrate IV . Q0M [facility] Rx#:[id number] Other 60 Output: Gastric Drainage 100 Urine 500 1363 760 Other: Voiding Method Indwelling Catheter Indwelling Catheter Indwelling Catheter ABP, PAP, CO, CI - Last Documented Arterial Blood Pressure 117/51 - Exam Physical Exam: Revealed a 30-year-old female in no distress, on mechanical ventilation, and off propofol, patient was very appropriate. HEENT:[Neck is supple.] [No neck masses.] [No thyromegaly.] [No JVD.] Chest: [Clear throughout, no crackles, no rhonchi, no wheezes.] Cardiac Exam: [Normal S1 and S2, no S3 gallop, no murmur.] Abdomen: [Soft, nontender, no megaly, no rebound, no guarding, normal bowel sounds.] Extremities: [No clubbing, no edema, no cyanosis.] Neurological Exam: [No focal neurologic deficit.] Patient had a brief neurological exam off propofol. And again she was quite appropriate. No focal neurologic deficit noted. - Labs CBC & Chem 7: 07/03/16 04:55 07/03/16 04:55 Labs: Abnormal Lab Results - Last 24 Hours (Table) 07/02/16 07/02/16 07/03/16 Range/Units 14:45 15:15 04:55 RBC 3.75 L (3.80-5.40) m/uL Hgb 8.7 L (11.4-16.0) gm/dL Hct 28.2 L (34.0-46.0) % MCV 75.2 L (80.0-100.0) fL MCH 23.2 L (25.0-35.0) pg MCHC 30.8 L (31.0-37.0) g/dL RDW 16.0 H (11.5-15.5) % ABG pCO2 (35-45) mmHg ABG pO2 (83-108) mmHg ABG O2 Saturation (94-97) % Chloride (98-107) mmol/L Glucose (74-99) mg/dL Calcium (8.4-10.2) mg/dL Prolactin 23.0 H (3.0-18.6) ng/mL Urine Opiates Screen Detected H (NotDetected) U Benzodiazepines Scrn Detected H (NotDetected) U Marijuana (THC) Screen Detected H (NotDetected) 07/03/16 07/03/16 Range/Units 04:55 04:56 RBC (3.80-5.40) m/uL Hgb (11.4-16.0) gm/dL Hct (34.0-46.0) % MCV (80.0-100.0) fL MCH (25.0-35.0) pg MCHC (31.0-37.0) g/dL RDW (11.5-15.5) % ABG pCO2 32 L (35-45) mmHg ABG pO2 246 H (83-108) mmHg ABG O2 Saturation 100.0 H (94-97) % Chloride 113 H (98-107) mmol/L Glucose 72 L (74-99) mg/dL Calcium 8.3 L (8.4-10.2) mg/dL Prolactin (3.0-18.6) ng/mL Urine Opiates Screen (NotDetected) U Benzodiazepines Scrn (NotDetected) U Marijuana (THC) Screen (NotDetected) Assessment and Plan Plan: 1 status epilepticus, event as mentioned above, failed to respond to Valium and following that the patient was placed on IV Diprivan drip in addition to a dose of phenobarbital and started on a combination of Keppra and Depacon. She is currently free of any seizures and EEG is in progress. Neurology is on the case 2 acute respiratory failure secondary to above-mentioned events 3 history of seizure disorder/epilepsy 4 chronic anxiety/depression/bipolar disorder 5 chronic anemia 6 chronic back pain 7 history of self-mutilation and self cutting 8 questionable history of CVA, current CAT scan is not showing any acute abnormalities Recommendation: Continue patient on present meds including propofol, Depakote, Keppra, neurology is readdressing the patient today, and await further input regarding the treatment of her seizures. Presently patient is resting on mechanical ventilation, I was about to extubate the patient and she was on a pressure support and CPAP doing quite well until she had another seizure then we had to place her back on propofol and back on mechanical ventilation fully. Critical care time is 32 minutes. Time with Patient: Greater than 30
--- NOTE | 2016-07-03 17:37 | P.PN ---
Subjective This patient is a 30-year-old right-handed white female who was seen in neurology consultation yesterday with evidence of status epilepticus. Patient had multiple seizures on the medical floor and was subsequently intubated and transferred to the intensive care unit. She was started on propofol which helped reduce the seizure activity. She is currently on 2 IV anticonvulsant medications which include Depakote and Keppra. Her levels are therapeutic on both anticonvulsant medications today. Attempt was made today to extubate the patient off of mechanical ventilation. She had another seizure during this attempt and she was placed back on propofol and back on mechanical ventilation. Her Depakote level today is therapeutic at 69.3. Her Keppra level came back yesterday therapeutic at 18.6. Due to evidence of the status epilepticus she underwent a stat EEG yesterday. Surprisingly the EEG revealed only moderate slowing with no evidence of any epileptiform discharges. This raises suspicion as to the seizure-like events. Given the fact that she was in status epilepticus we would've expected some epileptiform discharges on her EEG. On further assessment the patient does have a history of pseudoseizures in the past. There is concern whether some of these events may be related to pseudoseizure like activity. She did undergo a CAT scan yesterday of the brain. This revealed no acute intracranial abnormality. There was a 5 mm right cerebellar tonsillar herniation. This was indeterminate between a benign tonsillar ectopia and a Chiari malformation. We did review the CAT scan results today in detail with the staff. Patient remains intubated on a propofol drip. We have discussed the current neurological status of this patient in detail with the patient's significant other Mr. Ramirez. We have recommended that the patient would best be served by transfer to the neuro intensive care unit at [facility] for further neurological and neurosurgical evaluation. As noted CAT scan did reveal a right cerebellar tonsillar herniation. We would recommend neurosurgery consultation for further evaluation. Patient also continues to have seizure seizures despite having therapeutic levels of both anticonvulsant medications. She has been unable to wean off of the propofol drip as well. This case was discussed at length with the [facility] neuro critical care intensivists. Case was discussed in detail with Dr. Mcbride who is now accepted the patient in transfer to the neuro ICU for further management. They have recommended to continue all of her current medications and sedation. She will be transferred by EMS with close monitoring. She has been assigned a bed in the neuro ICU and will go directly to the intensive care unit at [facility]. Case was discussed earlier with her significant other. He has been updated by the nursing staff as to her current status and transfer to [facility] later this evening. We will continue close monitoring of the patient in the ICU setting. Overall prognosis at this time remains very guarded. Objective - Vital Signs Vital signs: Vital Signs Temp 97.8 F 07/03/16 12:00 Pulse 68 07/03/16 16:16 Resp 16 07/03/16 14:30 BP 103/57 07/02/16 18:00 Pulse Ox 100 07/03/16 14:30 Intake & Output 07/02/16 07/03/16 07/03/16 18:59 06:59 18:59 Intake Total 250 1507.955 892.872 Output Total 500 1463 760 Balance -250 44.955 132.872 Weight 62.9 kg 62.142 kg Intake: IV 200 1250 800 Sodium Chloride 0.9% 1, 200 1200 800 000 ml @ 20 mls/hr IV . Q24H [facility] Rx#:[id number] Valproate Sodium 1,000 mg 50 In Sodium Chloride 0.9% 50 ml @ 50 mls/hr IVPB ONCE [facility] Rx#:[id number] Intake, IV Titration 50 197.955 92.872 Amount Midazolam HCl 100 mg In 13.764 Sodium Chloride 0.9% 80 ml @ 0.02 MG/KG/HR 1.24 mls/hr IV .Q24H [facility] Rx#: [id number] Propofol 500 mg In Empty 50 184.191 92.872 Bag 1 bag @ Titrate IV . [facility] Rx#:[id number] Other 60 Output: Gastric Drainage 100 Urine 500 1363 760 Other: Voiding Method Indwelling Catheter Indwelling Catheter Indwelling Catheter ABP, PAP, CO, CI - Last Documented Arterial Blood Pressure 117/51 - Exam Physical examination: PHYSICAL EXAMINATION: Patient is examined in the intensive care unit. Patient is currently intubated on the ventilator and is sedated. VITAL SIGNS: Blood pressure is [117/51]. Heart rate is [57]. Respiration is [16] . Temperature is [97.8 ]. HEENT: Head is atraumatic, neck is supple, there were no carotid bruits. CHEST: Lungs are clear to auscultation and percussion. CARDIAC: S1, S2 normal rate and rhythm. There is no murmur. ABDOMEN: Soft and nontender. Bowel sounds are present. EXTREMITIES: There is no pedal edema. Peripheral pulses are present. Neurological examination: Patient's neurological examination is unchanged from yesterday. Patient remains on a propofol drip. She does open her eyes occasionally to sternal rub. She is not following any commands. No active seizure activity is noted at this time. - Labs CBC & Chem 7: 07/03/16 04:55 07/03/16 04:55 Labs: Abnormal Lab Results - Last 24 Hours (Table) 07/02/16 07/02/16 07/03/16 Range/Units 14:45 15:15 04:55 RBC 3.75 L (3.80-5.40) m/uL Hgb 8.7 L (11.4-16.0) gm/dL Hct 28.2 L (34.0-46.0) % MCV 75.2 L (80.0-100.0) fL MCH 23.2 L (25.0-35.0) pg MCHC 30.8 L (31.0-37.0) g/dL RDW 16.0 H (11.5-15.5) % ABG pCO2 (35-45) mmHg ABG pO2 (83-108) mmHg ABG O2 Saturation (94-97) % Chloride (98-107) mmol/L Glucose (74-99) mg/dL Calcium (8.4-10.2) mg/dL Prolactin 23.0 H (3.0-18.6) ng/mL Urine Opiates Screen Detected H (NotDetected) U Benzodiazepines Scrn Detected H (NotDetected) U Marijuana (THC) Screen Detected H (NotDetected) 07/03/16 07/03/16 Range/Units 04:55 04:56 RBC (3.80-5.40) m/uL Hgb (11.4-16.0) gm/dL Hct (34.0-46.0) % MCV (80.0-100.0) fL MCH (25.0-35.0) pg MCHC (31.0-37.0) g/dL RDW (11.5-15.5) % ABG pCO2 32 L (35-45) mmHg ABG pO2 246 H (83-108) mmHg ABG O2 Saturation 100.0 H (94-97) % Chloride 113 H (98-107) mmol/L Glucose 72 L (74-99) mg/dL Calcium 8.3 L (8.4-10.2) mg/dL Prolactin (3.0-18.6) ng/mL Urine Opiates Screen (NotDetected) U Benzodiazepines Scrn (NotDetected) U Marijuana (THC) Screen (NotDetected) Assessment and Plan (1) 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 Patient unfortunately developed status epilepticus yesterday morning and was intubated and transferred to the intensive care unit. She was loaded with 2 anticonvulsant medications and does have therapeutic levels today. Attempt was made to wean the patient off of the ventilator this morning and she continued to have seizure activity. It is still unclear as to the nature of her seizures. She underwent a routine EEG yesterday which failed to reveal any active seizure focus. She does have history of pseudoseizures in the past. Computed tomography scan of the brain revealed no acute intracranial abnormality. There was evidence of a 5 mm right cerebellar tonsillar herniation. It is unclear if this finding is contributing to her seizures. We have recommended the patient to be transferred to the neuro intensive care unit at [facility] for further monitoring and management. We would recommend a neurosurgery consultation to review her CAT scan results. Case was discussed today at length with the patient's significant other Mr. Ramirez. He was updated on her test results and current neurological status. He is in full agreement to have the patient transferred as soon as a bed is available to the neuro ICU at [facility]. Transferred team was contacted this evening and the patient has been excepted in transferred to [facility] neuro intensive care unit under the care of Dr. Mcbride. We will continue close monitoring of this patient in the ICU until she is transferred by EMS with full ACLS protocol to [facility] neuro ICU. Her overall prognosis at this time remains very guarded. We have instructed the ICU nursing staff to contact all concerned physicians about her impending transfer to [facility] neuro ICU for further management and treatment.
[2016-07-03 18:02] VITALS: TEMP 98.2
[2016-07-03 19:32] VITALS: PULSE 65
--- NOTE | 2016-07-07 22:25 | DS ---
DATE OF ADMISSION: 07/02/2016 DATE OF DISCHARGE: 07/03/2016 DIAGNOSES: 1. Status epilepticus due to idiopathic epilepsy. 2. Bipolar disorder. 3. Pseudoseizures. 4. Acute encephalopathy. This patient is a 30-year-old white female admitted with a breakthrough seizure, intubated in the hospital due to severe seizure activity. She was sent in stable condition from the ICU. She was transferred to [facility] Neuro ICU due to persistent seizures while on the ventilator. Medications per Dr. Russo, Neurology. The transfer was accomplished and the patient was sent in stable condition on the ventilator to [facility] ICU per Dr. Russo's recommendations.
== END 2016-07-03 20:24 | disposition short-term general hospital (02) | DRG 100 ==
LOC: EC 01:44 → OBSVTOIN 02:09 → 4MS4W 02:09 → 6ICU 13:57
PROVIDERS: ADMIT Family Medicine; ATTEND Family Medicine
PROC: 0BH18EZ Insertion of Endotracheal Airway into Trachea, Via Natural or Artificial Opening Endoscopic (ICD-10-PCS; principal; 2016-07-02)
PROC: 4A133J1 Monitoring of Arterial Pulse, Peripheral, Percutaneous Approach (ICD-10-PCS; principal; 2016-07-02)
PROC: 4A133B1 Monitoring of Arterial Pressure, Peripheral, Percutaneous Approach (ICD-10-PCS; principal; 2016-07-02)
PROC: 03HY32Z Insertion of Monitoring Device into Upper Artery, Percutaneous Approach (ICD-10-PCS; principal; 2016-07-02)
PROC: 5A1945Z Respiratory Ventilation, 24-96 Consecutive Hours (ICD-10-PCS; principal; 2016-07-02)
PROC: 06HC33Z Insertion of Infusion Device into Right Common Iliac Vein, Percutaneous Approach (ICD-10-PCS; principal; 2016-07-02)
DX: G40.311 Generalized idiopathic epilepsy and epileptic syndromes, intractable, with status epilepticus (principal); J96.00 Acute respiratory failure, unspecified whether with hypoxia or hypercapnia; M41.9 Scoliosis, unspecified; D64.9 Anemia, unspecified; F31.9 Bipolar disorder, unspecified; S00.83XA Contusion of other part of head, initial encounter; F44.5 Conversion disorder with seizures or convulsions; F17.200 Nicotine dependence, unspecified, uncomplicated; F41.9 Anxiety disorder, unspecified; G89.29 Other chronic pain; K21.9 Gastro-esophageal reflux disease without esophagitis; W19.XXXA Unspecified fall, initial encounter; Y92.009 Unspecified place in unspecified non-institutional (private) residence as the place of occurrence of the external cause; Z79.899 Other long term (current) drug therapy; Z82.49 Family history of ischemic heart disease and other diseases of the circulatory system; Z86.73 Personal history of transient ischemic attack (TIA), and cerebral infarction without residual deficits; Z91.5 Personal history of self-harm
CPT/HCPCS: 70200; 70450; 71010; 72050; 80048; 80053; 80164; 80177; 80306; 81003; 82805; 83540; 83550; 83605; 83735; 84100; 84146; 85025; 94002; 94003; 94640; 95816; 99285

== ENCOUNTER 2016-08-10 22:21 | Inpatient (IN) | payer MEDICAID, OTHER ==
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
[2016-08-11] MEDS ORDERED: LORazepam 2 MG/ML SYRINGE IM STA (02:09)
[2016-08-11] MEDS ORDERED: ZIPRASIDONE 20 MG VIAL IM STA (02:09)
[2016-08-11] MEDS ORDERED: ACETAMINOPHEN TAB 325 MG TAB PO PRN (04:24)
[2016-08-11] MEDS ORDERED: MAGNESIUM HYDROXIDE 2,400 MG/10 ML CUP PO PRN (04:24)
[2016-08-11] MEDS ORDERED: ZIPRASIDONE 20 MG VIAL IM PRN (04:24)
[2016-08-11] MEDS ORDERED: MAG HYDROX/AL HYDROX/SIMETH 30 ML CUP PO PRN (04:24)
[2016-08-11 08:57] VITALS: BMI 21.1
[2016-08-11] MEDS ORDERED: FLUoxetine HCL 20 MG CAP PO SCH (09:00)
[2016-08-11] MEDS ORDERED: TOPIRAMATE 25 MG TAB PO SCH (09:00)
[2016-08-11] MEDS ORDERED: GABAPENTIN 300 MG CAP PO SCH (09:00)
[2016-08-11] MEDS: levETIRAcetam 500 MG TAB PO SCH ×2 (10:12→20:13)
[2016-08-11] MEDS: FERROUS SULFATE 325 MG TAB PO SCH (10:13)
[2016-08-11 10:15] LABS: Anisocytosis Slight; Basophils # (A) 0.1 k/uL (0-0.2); Basophils % (A) 1 %; CH 23.1; Eosinophils # (A) 0.3 k/uL (0-0.7); Eosinophils % (A) 3 %; HCT 37.3 % (34.0-46.0); HDW 2.86; HGB 11.1 gm/dL (11.4-16.0); Hypochromasia Marked; Luc # (Auto) 0.14; Luc % (Auto) 2; Lymphocytes # (A) 2.6 k/uL (1.0-4.8); Lymphocytes % (A) 33 %; MCH 23.7 pg (25.0-35.0); MCHC 29.7 g/dL (31.0-37.0); MCV 79.8 fL (80.0-100.0); Mean Platelet Volume 7.1; Monocytes # (A) 0.3 k/uL (0-1.0); Monocytes % (A) 3 %; Neutrophils # (A) 4.4 k/uL (1.3-7.7); Neutrophils % (A) 57 %; RBC 4.68 m/uL (3.80-5.40); RDW 16.7 % (11.5-15.5); WBC 7.7 k/uL (3.8-10.6)
[2016-08-11 10:27] LABS: ALT 20 U/L (9-52); AST 17 U/L (14-36); Alkaline Phosphatase 91 U/L (38-126); Anion Gap 11 mmol/L; Blood Urea Nitrogen 10 mg/dL (7-17); Calcium 9.4 mg/dL (8.4-10.2); Carbon Dioxide 26 mmol/L (22-30); Chloride 106 mmol/L (98-107); Glucose 85 mg/dL (74-99); Non-African American GFR(MDRD) >60 (>60 ml/min/1.73 sqM); Potassium 4.1 mmol/L (3.5-5.1); Sodium 143 mmol/L (137-145); Total Bilirubin 1.2 mg/dL (0.2-1.3); Total Protein 7.4 g/dL (6.3-8.2)
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
[2016-08-11] MEDS: DIAZEPAM 5 MG TAB PO PRN ×2 (13:18→20:13)
[2016-08-11] MEDS: GABAPENTIN 400 MG CAP PO SCH ×2 (16:13→21:32)
[2016-08-12] MEDS: ESCITALOPRAM 10 MG TAB PO SCH (08:29)
[2016-08-12] MEDS: MUPIROCIN 2% OINT 22 GM TUBE TOPICAL SCH ×3 (08:29→20:59)
[2016-08-12] MEDS: FERROUS SULFATE 325 MG TAB PO SCH (08:29)
[2016-08-12] MEDS: GABAPENTIN 400 MG CAP PO SCH ×3 (08:29→20:59)
[2016-08-12] MEDS: levETIRAcetam 500 MG TAB PO SCH ×2 (08:29→20:59)
[2016-08-12] MEDS: DIAZEPAM 5 MG TAB PO PRN ×2 (08:30→20:20)
--- NOTE | 2016-08-12 12:25 | P.PN ---
Progress Note - Text Interval history: Patient seen in cross coverage today for Dr. Centeno. She reports that she just came to the unit yesterday. She relays that this is her first admission. She reports that she feels depressed and very anxious. She has started the Lexapro. She says she took 1 dose of Valium today. She inquires regarding her being able to visit as he has to work during visiting hours. She reports that she's not eating well or sleeping well. She also describes pain issues with sores on her back and scoliosis. Mental status exam: She is alert and cooperative with the interview. Her affect is restricted and tearful. She appears anxious. She describes depressed mood. She denies any current thoughts of harm to self or others. She denies any paranoid thoughts and denies any hallucinations. Her thought processes are organized. Plan: We'll maintain Lexapro and Valium when necessary as current. We will monitor her mood and level of anxiety. We will monitor for any medication side effects. We'll cover this patient for Dr. Centeno through the weekend.
[2016-08-12] MEDS: hydrOXYzine PAMOATE 25 MG CAP PO PRN (12:33)
[2016-08-12] MEDS ORDERED: IOHEXOL 350 MG/ML 25 ML BOTTLE (ORAL USE) PO PRN (16:56)
[2016-08-12] MEDS ORDERED: RX INFO: IV CONTRAST WAS GIVEN 1 EACH MISC MISCELLANE PRN (16:56)
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
[2016-08-12] MEDS: IBUPROFEN 400 MG TAB PO PRN (17:34)
[2016-08-12] MEDS: SULFAMETHOX-TMP 800-160MG 1 EACH TAB PO SCH (20:59)
--- NOTE | 2016-08-12 21:49 | CT ---
EXAMINATION TYPE: CT abdomen pelvis w con DATE OF EXAM: 08/12/2016 HISTORY: Abdominal pain, weight loss, and diarrhea. Pain most prominent left lower quadrant. CT DLP: 392mGycm Automated Exposure Control for Dose Reduction was Utilized. CONTRAST: CT scan of the abdomen and pelvis is performed with oral and with IV Contrast, patient injected with 100 mL of Omnipaque 300. COMPARISON: None. FINDINGS: LUNG BASES: No significant abnormality is appreciated. LIVER/GB: No significant abnormality is appreciated. PANCREAS: No significant abnormality is seen. SPLEEN: No significant abnormality is seen. ADRENALS: No significant abnormality is seen. KIDNEYS: No significant abnormality is seen. BOWEL: Oral contrast reaches level of the rectum. There is no suspicious small or large bowel dilatat ion. Normal-appearing appendix is seen from cecum inferiorly. There is prominent fecal and contrast f illed rectum with air-fluid level without suspicious more proximal dilatation. UTERUS/ADNEXA: Uterus is heterogeneous appearance and anteverted in shape. Left ovary is felt normal in size slightly more lateral position on axial image 63. Right ovary is within normal limits in size on axial image 68. A few scattered air-contrast levels are present. LYMPH NODES: No greater than 1cm abdominal or pelvic lymph nodes are appreciated. OSSEOUS STRUCTURES: No significant abnormality is seen. OTHER: No significant additional abnormality is seen. IMPRESSION: No significant acute finding is clearly seen to account for patient's clinical symptoms. Overall nonspecific but favor nonobstructive bowel gas pattern.
[2016-08-13] MEDS: levETIRAcetam 500 MG TAB PO SCH ×2 (09:21→21:14)
[2016-08-13] MEDS: MUPIROCIN 2% OINT 22 GM TUBE TOPICAL SCH ×3 (09:21→21:15)
[2016-08-13] MEDS: SULFAMETHOX-TMP 800-160MG 1 EACH TAB PO SCH ×2 (09:21→21:14)
[2016-08-13] MEDS: FERROUS SULFATE 325 MG TAB PO SCH (09:21)
[2016-08-13] MEDS: GABAPENTIN 400 MG CAP PO SCH ×3 (09:21→21:14)
[2016-08-13] MEDS: ESCITALOPRAM 10 MG TAB PO SCH (09:21)
[2016-08-13] MEDS: DIAZEPAM 5 MG TAB PO PRN ×2 (09:23→19:00)
--- NOTE | 2016-08-13 14:57 | P.PN ---
Progress Note - Text Interval history: Patient seen in cross coverage today for Dr. Centeno. She reports that she is not sleeping well. She is taking her Lexapro and Valium as needed. She describes high levels of anxiety and also describes the depression. She seems to describe racing thoughts and mood swings. She is also currently on Neurontin and Keppra for seizures. She still describes having pain today. She was started on antibiotic yesterday. Mental status exam: She is alert and cooperative with the interview. She does appear anxious. Her mood is depressed. She denies any thoughts of harm to self or others. No evidence of active psychosis or significant agitation. Plan: We'll maintain Lexapro and Valium when necessary as current. We will initiate trazodone as needed for insomnia. Consideration for additional psychotropic medication such as Abilify to help further augmentation regarding mood symptoms depending on how she continues to respond. Dr. Centeno to resume care this patient starting tomorrow.
[2016-08-13] MEDS ORDERED: traZODone HCL 50 MG TAB PO SCH (21:00)
[2016-08-13] MEDS: traZODone HCL 50 MG TAB PO PRN (21:16)
--- NOTE | 2016-08-14 08:52 | P.PN ---
Progress Note - Text Interval history: The patient is found in the dining room she follows me to an interview room. She reports that her mood continues to be down she still has some suicidal thinking. She feels that her mood continues to fluctuate and she has mood swings. We discussed the possibility of adding a mood stabilizer and she is agreeable. We reviewed several options and decided to initiate Lamictal. We discussed the risk of skin rash. She states that she has not been eating well and she does not like the food here she has been attending groups. Mental status exam: The patient is alert she is dressed in her own clothing eye contact is appropriate speech is fluent and spontaneous. Thought process is concrete chronically. She endorses a continued depressed mood with hopelessness thinking and suicidal thoughts at times. No homicidal ideation. She is endorsing no symptoms of psychosis. She demonstrates no verbal or physical aggressiveness. She again reiterates her concern regarding mood swings. Insight and judgment limited. Plan: The patient will continue on the Lexapro we will add Lamictal 25 mg twice daily to promote mood stability. We discussed risks and benefits of using Lamictal her questions were answered. We will continue to monitor her for safety and encourage her participation in the milieu. She requires continued hospitalization at this time.
[2016-08-14] MEDS: SULFAMETHOX-TMP 800-160MG 1 EACH TAB PO SCH ×2 (10:10→21:19)
[2016-08-14] MEDS: levETIRAcetam 500 MG TAB PO SCH ×2 (10:10→21:19)
[2016-08-14] MEDS: GABAPENTIN 400 MG CAP PO SCH ×3 (10:13→21:19)
[2016-08-14] MEDS: FERROUS SULFATE 325 MG TAB PO SCH (10:13)
[2016-08-14] MEDS: ESCITALOPRAM 10 MG TAB PO SCH (10:14)
[2016-08-14] MEDS: DIAZEPAM 5 MG TAB PO PRN ×2 (10:14→22:58)
[2016-08-14] MEDS: MUPIROCIN 2% OINT 22 GM TUBE TOPICAL SCH ×3 (10:14→23:01)
[2016-08-14] MEDS: lamoTRIgine 25 MG TAB PO SCH ×2 (10:14→21:20)
[2016-08-14] MEDS: PANTOPRAZOLE 40 MG TABLET PO SCH (14:18)
[2016-08-14] MEDS: IBUPROFEN 400 MG TAB PO PRN (16:36)
[2016-08-14] MEDS: hydrOXYzine PAMOATE 25 MG CAP PO PRN (16:36)
[2016-08-14] MEDS: traZODone HCL 50 MG TAB PO PRN (23:55)
[2016-08-15] MEDS: lamoTRIgine 25 MG TAB PO SCH ×2 (08:19→21:42)
[2016-08-15] MEDS: DIAZEPAM 5 MG TAB PO PRN ×3 (08:19→21:42)
[2016-08-15] MEDS: SULFAMETHOX-TMP 800-160MG 1 EACH TAB PO SCH ×2 (08:19→21:42)
[2016-08-15] MEDS: PANTOPRAZOLE 40 MG TABLET PO SCH (08:19)
[2016-08-15] MEDS: FERROUS SULFATE 325 MG TAB PO SCH (08:19)
[2016-08-15] MEDS: levETIRAcetam 500 MG TAB PO SCH ×2 (08:19→21:42)
[2016-08-15] MEDS: ESCITALOPRAM 10 MG TAB PO SCH (08:19)
[2016-08-15] MEDS: GABAPENTIN 400 MG CAP PO SCH ×3 (08:19→21:42)
[2016-08-15] MEDS: MUPIROCIN 2% OINT 22 GM TUBE TOPICAL SCH ×3 (10:15→21:44)
--- NOTE | 2016-08-15 10:40 | P.CONS ---
History of Present Illness - Reason for Consult Consult date: 08/15/16 Diarrhea weight loss nausea vomiting Requesting physician: Emely Parker - History of Present Illness 30-year-old female with a history of suicidal attempts, epilepsy, CVA 2, anxiety, depression, possible bipolar, and possible bulimia presents with suicidal ideation with attempt. Patient stated she tried to kill herself by running the car in a garage with the door down. Consultation requested for epigastric pain nausea vomiting and diarrhea with reported weight loss. Patient reports a 2 month history of nausea vomiting crampy epigastric pain after eating. She reports a 30 pound weight loss over the last 2 months. Upon review of medical records patient's weight 1 year ago was 74.5 kg presently 55.4 kg. Nursing reports a possible history of bulimia, self-induced vomiting. Nursing reports no witnessed episodes of emesis. Nursing staff reports patient is very particular on what food she eats and sometimes will not eat. Patient has been refusing hospital food by drinking large amounts of water and liquids. Patient reports multiple loose nonbloody bowel movements daily sometimes 10-15. 2 loose bowel movements this morning. Clostridium difficile testing negative. Stool WBC negative. Preliminary stool culture no Salmonella Shigella or E. coli. Computed tomography scan abdomen and pelvis reported no evidence to account for her GI complaints. Denies hematemesis hematochezia or melena. No recent travels sick contacts or changes in medications. LFTs within normal limits. Lipase 50. Hemoglobin 11.1. MCV 79. White count 7.7. Review of Systems Constitutional: Denies fever, chills, sweats, weight gain, or loss. HEENT: Negative for migraines, blurred vision or loss, earaches, drainage, tinnitus, oral mucosal lesions, dysphagia, or odynophagia. CARDIAC: Negative for chest pain, arrhythmias, or palpitation. RESPIRATORY: Nicotine cigarette dependency. Negative for shortness of breath, hemoptysis, cough, or sputum production. GI: See HPI for pertinent findings. : Negative for hematuria, urgency, frequency, polyuria, or dysuria. GYNc: Denies possibility of . Negative vaginal discharge. MUSCULOSKELETAL: Seizure disorder. Negative for muscle aches, swelling, arthritis, and arthralgias. NEUROLOGIC: Negative for stroke or TIA. ENDOCRINE: Negative for thyroid problems. SKIN: Negative for rash or itching. PSYCHIATRIC: Depression. Anxiety. Bipolar. 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, (questionably at [facility], per patient) MDRO Source:: back Past Surgical History: Section Additional Past Surgical History / Comment(s): x3 c-sections,ovarian cyst removed,hemorrhoidectomy Past Anesthesia/Blood Transfusion Reactions: No Reported Reaction Additional Past Anesthesia/Blood Transfusion Reaction / Comm: clausterphobia Past Psychological History: Anxiety, Bipolar, Depression Additional Psychological History / Comment(s): pt stated feels depressed daily no interest in things does'nt want to eat,has trouble sleeping feels hopeless for present and future but stated does'nt have any thoughts of harming self. lives with 3 kids and fiancee.is independant,no outside services. Smoking Status: Current every day smoker Past Alcohol Use History: Rare Additional Past Alcohol Use History / Comment(s): has smoked for 13 years ,1/2 ppd. rare alcohold use Past Drug Use History: None Reported - Past Family History Father History Unknown: Yes Family Medical History: Congestive Heart Failure (CHF) Mother History Unknown: Yes Medications and Allergies Home Medications Medication Instructions Recorded Confirmed Type FLUoxetine HCL [PROzac] 40 mg PO DAILY 07/02/16 08/13/16 History Gabapentin [Neurontin] 300 mg PO TID 07/02/16 08/13/16 History hydrOXYzine PAMOATE [Vistaril] 50 mg PO TID PRN 07/02/16 08/13/16 History Ferrous Sulfate [Feosol] 325 mg PO DAILY 08/10/16 08/13/16 History Mupirocin 2% Oint [Bactroban 2% 1 applic TOPICAL BID 08/10/16 08/13/16 History Oint] Topiramate [Topamax] 50 mg PO BID 06/08/17 06/11/17 History Allergies Allergy/AdvReac Type Severity Reaction Status Date / Time lorazepam [From Ativan] Allergy Anaphylaxis Verified 08/13/16 05:49 tramadol Allergy Rash/Hives Verified 08/13/16 05:49 Physical Exam Vitals: Vital Signs Temp Pulse Resp BP 08/15/16 07:08 97.6 F 78 16 94/59 08/14/16 22:51 94 108/68 08/14/16 21:18 98 111/75 General appearance: The patient is alert, oriented, in no acute distress. HET: Head is normocephalic and atraumatic. Pupils are equal and reactive. Oropharynx is clear without lesions. Neck: Supple without lymphadenopathy. Trachea midline. Heart: S1 S2. Regular rate and rhythm. Lungs: No crackles or wheezes are heard. Abdomen: Soft, mild midepigastric tenderness, nondistended with bowel sounds. No peritoneal signs. No palpable organomegaly or masses. Extremities: Normal skin color and turgor. No cyanosis, rash, ulceration, clubbing, or edema. Radial and pedal pulses are 2/4 bilaterally. Neurological: No focal deficits. Strength and sensation are grossly intact. Results CBC & Chem 7: 08/11/16 09:21 08/11/16 09:21 Labs: Microbiology - Last 24 Hours (Table) 08/12/16 23:40 Stool Culture - Preliminary Stool CT scan - abdomen: report reviewed (Dr. Moore) Assessment and Plan Plan: Impression: 1. 30-year-old female presents with suicidal ideation attempt with 2 month history of reported nausea vomiting nonbloody diarrhea epigastric pain after eating meals with 20 pound kilogram weight loss possibly intentional over the last year. CT abdomen and pelvis reported no acute findings to account for her GI symptoms. Stool studies unremarkable. Etiology of presentation is unclear at this time it's possible her present psychiatric status is contributing to her inability to eat. No witnessed episodes of vomiting per nursing staff. 2. Possible history of bulimia self-induced vomiting per nursing staff. 3. History of depression and anxiety. 4. History of injurious behavior self-mutilation and suicidal attempts. Recommendations: 1. Nursing staff was instructed to monitor bowel movements and assess for diarrhea and record. If patient has documented diarrhea would advise antidiarrheals as needed to keep bowel movements less than 4 times a day. 2. Continue supportive measures including Protonix 40 mg daily. 3. Consideration for EGD will be based on clinical course. Other differentials to consider is gallbladder pathology/biliary dyskinesia contributing to her symptoms. Thank you for this kind referral and the opportunity to participate in the care of your patient. This consultation was discussed with Dr. Moore. The impression and plan of care have been directed as dictated.
[2016-08-15] MEDS ORDERED: ONDANSETRON ODT 4 MG TAB PO PRN (11:18)
--- NOTE | 2016-08-15 11:29 | P.PN ---
Progress Note - Text Interval history: The patient is found in the dining room she follows me to an interview room. She reports that she is experiencing acute symptoms of nausea and that she is vomiting. She states she is unable to keep any food down. Apparently she is accustomed to only eating [employer] and [employer]. She has been seen by gastroenterology that consultation has been reviewed. Abdominal computed tomography scan was negative for any acute findings. There is a question as to whether or not the patient is self inducing vomiting. The patient spontaneously states that she has not. She has been compliant with the psychotropic medications. She appears acutely anxious she states that she feels caught because her family members are telling her she needs to come home now to provide financial support and to care for her children. She does continue to endorse suicidal ideation with considerations of plan. Mental status exam: The patient is a thin female she appears acutely anxious she maintains a very tense posture with her fists clenched and her forearms flexed. She is tearful throughout the session. She endorses a continued depressed mood with suicidal ideation. She is endorsing no auditory or visual hallucinations no specific delusions. She does not appear hypomanic or manic at this time. She demonstrates no verbal or physical aggressiveness. Affect is dysphoric and anxious. Insight and judgment limited. Chronically she utilizes a concrete thought process. Plan: The patient's will continue on her current psychotropic medications. Input from GI appreciated. I will order Zofran as needed for nausea hoping that it will allow her to eat. We will continue to monitor her vitals. She is not yet stabilized from a psychiatric perspective to return home. We will continue to monitor her for safety.
[2016-08-15] MEDS: hydrOXYzine PAMOATE 25 MG CAP PO PRN (12:20)
[2016-08-15] MEDS: DICYCLOMINE 10 MG CAP PO SCH ×2 (15:25→21:42)
[2016-08-15 21:42] LABS: Appearance,Urine Clear (Clear); Bilirubin,Urine Negative (Negative); Glucose,Urine (UA) Negative (Negative); Ketones,Urine Negative (Negative); Leukocyte Esterase,Urine Negative (Negative); Nitrite,Urine Negative (Negative); PH, Urine 6.5 (5.0-8.0); Protein,Urine Negative (Negative); Specific Gravity,Urine 1.012 (1.001-1.035); UA Billing (MACRO vs. MICRO) CHEM; Urobilinogen,Urine <2.0 mg/dL (<2.0)
[2016-08-16] MEDS: DICYCLOMINE 10 MG CAP PO SCH ×3 (08:38→21:57)
[2016-08-16] MEDS: FERROUS SULFATE 325 MG TAB PO SCH (08:38)
[2016-08-16] MEDS: PANTOPRAZOLE 40 MG TABLET PO SCH (08:38)
[2016-08-16] MEDS: ESCITALOPRAM 10 MG TAB PO SCH (08:38)
[2016-08-16] MEDS: lamoTRIgine 25 MG TAB PO SCH ×2 (08:39→22:02)
[2016-08-16] MEDS: SULFAMETHOX-TMP 800-160MG 1 EACH TAB PO SCH ×2 (08:39→21:57)
[2016-08-16] MEDS: GABAPENTIN 400 MG CAP PO SCH ×3 (08:39→21:57)
[2016-08-16] MEDS: levETIRAcetam 500 MG TAB PO SCH ×2 (08:39→21:57)
[2016-08-16] MEDS: MUPIROCIN 2% OINT 22 GM TUBE TOPICAL SCH ×3 (08:39→22:02)
[2016-08-16] MEDS: DIAZEPAM 5 MG TAB PO PRN ×2 (08:40→16:47)
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
[2016-08-16] MEDS: hydrOXYzine PAMOATE 25 MG CAP PO PRN (11:16)
[2016-08-16] MEDS ORDERED: LOPERAMIDE 2 MG CAP PO PRN (11:30)
--- NOTE | 2016-08-16 11:33 | P.PN ---
Subjective Principal diagnosis: Nausea vomiting abdominal pain diarrhea weight loss Reports 2 loose nonbloody bowel movements this morning. Intermittent nausea no emesis. Abdominal pain still present minimally improved. Started on Bentyl last night. CRP sed rate within normal limits. Stool studies negative. Increased stressors this morning with family. Patient was crying and screening on the phone. Objective - Vital Signs Vital signs: Vital Signs Temp 97.7 F 08/16/16 06:23 Pulse 106 H 08/16/16 08:42 Resp 14 08/16/16 06:23 BP 112/64 08/16/16 08:42 Pulse Ox 100 08/11/16 04:08 - Exam General appearance: The patient is alert, tearful. HET: Head is normocephalic and atraumatic. Pupils are equal and reactive. Oropharynx is clear without lesions. Neck: Supple without lymphadenopathy. Trachea midline. Heart: S1 S2. Regular rate and rhythm. Lungs: No crackles or wheezes are heard. Abdomen: Soft, mild midepigastric mid abdominal tenderness, nondistended with bowel sounds. No peritoneal signs. No palpable organomegaly or masses. Extremities: Normal skin color and turgor. No cyanosis, rash, ulceration, clubbing, or edema. Radial and pedal pulses are 2/4 bilaterally. Neurological: No focal deficits. Strength and sensation are grossly intact. - Labs CBC & Chem 7: 08/11/16 09:21 08/11/16 09:21 Labs: Microbiology - Last 24 Hours (Table) 08/12/16 23:40 Stool Culture - Preliminary Stool Assessment and Plan Plan: Impression: 1. 30-year-old female presents with suicidal ideation attempt with 2 month history of reported nausea vomiting nonbloody diarrhea epigastric pain after eating meals with 20 pound kilogram weight loss possibly intentional over the last year. CT abdomen and pelvis reported no acute findings to account for her GI symptoms. Stool studies unremarkable. Etiology of presentation is unclear at this time it's possible her present psychiatric status is contributing to her inability to eat. No witnessed episodes of vomiting per nursing staff. 2. Possible history of bulimia self-induced vomiting per nursing staff. 3. History of depression and anxiety. 4. History of injurious behavior self-mutilation and suicidal attempts. Recommendations: 1. Continue symptomatic and supportive measures. Zofran as needed. Imodium as needed for diarrhea. Bentyl 10 mg 3-4 times daily for abdominal cramping. Pepcid/omeprazole daily for GI prophylaxis. Outpatient EGD colonoscopy was discussed with patient and with psychiatrist Dr. Centeno. Dr. Centeno agreeable with outpatient endoscopy evaluation. Follow up in GI office 1-2 weeks after discharge for reevaluation. Assessment and plan of care discussed with Dr. Moore.
[2016-08-16] MEDS ORDERED: ZIPRASIDONE 20 MG VIAL IM ONE (13:26)
[2016-08-16] MEDS ORDERED: WATER FOR INJECTION, STERILE 10 ML IV ONE (13:26)
[2016-08-16] MEDS: traZODone HCL 50 MG TAB PO PRN (23:25)
[2016-08-17 06:44] VITALS: BP 88/51; PULSE 75; RESP 16; TEMP 97.8
[2016-08-17] MEDS: DICYCLOMINE 10 MG CAP PO SCH (08:20)
[2016-08-17] MEDS: lamoTRIgine 25 MG TAB PO SCH (08:20)
[2016-08-17] MEDS: PANTOPRAZOLE 40 MG TABLET PO SCH (08:20)
[2016-08-17] MEDS: SULFAMETHOX-TMP 800-160MG 1 EACH TAB PO SCH (08:20)
[2016-08-17] MEDS: GABAPENTIN 400 MG CAP PO SCH (08:20)
[2016-08-17] MEDS: ESCITALOPRAM 10 MG TAB PO SCH (08:20)
[2016-08-17] MEDS: levETIRAcetam 500 MG TAB PO SCH (08:20)
[2016-08-17] MEDS: FERROUS SULFATE 325 MG TAB PO SCH (08:20)
[2016-08-17] MEDS: DIAZEPAM 5 MG TAB PO PRN (08:21)
[2016-08-17] MEDS: MUPIROCIN 2% OINT 22 GM TUBE TOPICAL SCH (09:55)
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
[2016-08-17 14:36] LABS: Gliadin AB IgA, Deaminated 9 UNITS (<20); Gliadin AB IgG, Deaminated 3 UNITS (<20)
== END 2016-08-17 12:38 | disposition home or self-care (01) | DRG 885 ==
LOC: EC 22:21 → 3MHU 08-11 03:15
PROVIDERS: ADMIT Psychiatry & Neurology Psychiatry; ATTEND Psychiatry & Neurology Psychiatry
DX: F33.2 Major depressive disorder, recurrent severe without psychotic features (principal); M41.9 Scoliosis, unspecified; R45.851 Suicidal ideations; G40.909 Epilepsy, unspecified, not intractable, without status epilepticus; F17.200 Nicotine dependence, unspecified, uncomplicated; K21.9 Gastro-esophageal reflux disease without esophagitis; L08.9 Local infection of the skin and subcutaneous tissue, unspecified; Z79.899 Other long term (current) drug therapy; Z82.49 Family history of ischemic heart disease and other diseases of the circulatory system; Z86.59 Personal history of other mental and behavioral disorders; Z86.73 Personal history of transient ischemic attack (TIA), and cerebral infarction without residual deficits; Z88.8 Allergy status to other drugs, medicaments and biological substances; Z91.5 Personal history of self-harm
CPT/HCPCS: 74177; 80053; 80306; 81003; 81025; 82075; 82272; 83516; 83690; 84443; 85025; 85652; 86140; 87045; 87046; 87324; 87338; 89055; 96372; 99285

== ENCOUNTER 2016-09-20 18:00 | Emergency (ER) | payer OTHER ==
[2016-09-20 18:11] VITALS: BP 128/59; PULSE 88; RESP 15; TEMP 98.6
--- NOTE | 2016-09-20 18:42 | ED ---
Lower Extremity Injury HPI - General Chief Complaint: Extremity Injury, Lower Stated Complaint: right foot injury Time Seen by Provider: 09/20/16 18:18 Source: patient, RN notes reviewed Mode of arrival: wheelchair Limitations: no limitations - History of Present Illness Initial Comments: Patient is a 30-year-old female presents to the emergency room for evaluation of left foot pain. Patient states she has a history of seizures. Patient states she had a seizure yesterday and twisted her left foot/ankle. Patient denies head trauma. Patient states she's been having worsening left foot pain throughout last night and today. Patient states she is having pain on the top portion of her foot. Patient states been she has been taking Tylenol and Motrin and elevating her foot with no relief of symptoms. Patient denies any other injuries during incident. - Related Data Home Medications Medication Instructions Recorded Confirmed Ferrous Sulfate [Feosol] 325 mg PO DAILY 08/10/16 08/13/16 Previous Rx's Medication Instructions Recorded levETIRAcetam [Keppra] 1,000 mg PO Q12HR #60 tab 08/23/15 Diazepam [Valium] 5 mg PO DAILY PRN #12 tab 08/17/16 Escitalopram [Lexapro] 10 mg PO DAILY #30 tab 08/17/16 Gabapentin [Neurontin] 400 mg PO TID #45 cap 08/17/16 Ibuprofen [Motrin] 400 mg PO TID PRN tab 08/17/16 Loperamide [Imodium] 2 mg PO QID PRN cap 08/17/16 Ondansetron Odt [Zofran Odt] 4 mg PO Q8HR PRN #20 tab 08/17/16 Pantoprazole [Protonix] 40 mg PO AC-BRKFST #30 tab 08/17/16 Sulfamethox-Tmp 800-160Mg [Bactrim 1 each PO BID #4 tab 08/17/16 DS 800-160 mg] lamoTRIgine [LaMICtal] 25 mg PO BID #60 tab 08/17/16 traZODone HCL [Desyrel] 50 mg PO HS PRN #30 tab 08/17/16 Allergies Allergy/AdvReac Type Severity Reaction Status Date / Time lorazepam [From Ativan] Allergy Anaphylaxis Verified 09/20/16 18:11 tramadol Allergy Rash/Hives Verified 09/20/16 18:11 Review of Systems ROS Statement: Those systems with pertinent positive or pertinent negative responses have been documented in the HPI. ROS Other: All systems not noted in ROS Statement are negative. Past Medical History Past Medical History: Seizure Disorder Additional Past Medical History / Comment(s): Seizure disorder, anxiety, depression, bipolar disorder, chronic headache, right shoulder pain, osteoarthritis, scoliosis,"chronic backpain","head trauma d/t fall during seizure, stated has had 2 strokes not sure of dates, GI reflux, self-mutilation and the patient has had previous history of cutting herself History of Any Multi-Drug Resistant Organisms: MRSA Date of last positivie culture/infection: 2013, (questionably at [facility], per patient) MDRO Source:: back Past Surgical History: Section Additional Past Surgical History / Comment(s): x3 c-sections,ovarian cyst removed,hemorrhoidectomy Past Anesthesia/Blood Transfusion Reactions: No Reported Reaction Additional Past Anesthesia/Blood Transfusion Reaction / Comment(s): clausterphobia Past Psychological History: Anxiety, Bipolar, Depression Smoking Status: Current every day smoker Past Alcohol Use History: None Reported Past Drug Use History: Marijuana - Past Family History Father History Unknown: Yes Family Medical History: Congestive Heart Failure (CHF) Mother History Unknown: Yes General Exam - General Exam Comments Initial Comments: Laying in exam room, no acute distress. Limitations: no limitations General appearance: alert, in no apparent distress Head exam: Present: atraumatic, normocephalic, normal inspection Eye exam: Present: normal appearance ENT exam: Present: normal exam Neck exam: Present: normal inspection Respiratory exam: Absent: respiratory distress Left Foot/Toe exam: Present: tenderness (Dorsal foot over first/second mid- metatarsal area with overlying abrasion). Absent: full ROM (patient refuses to move foot secondary to pain) Neurovascular tendon exam: Absent: pulse deficit (2+ dorsal pedal and posterior tibial pulses), abnormal cap refill (capillary refill less than 2 seconds) Back exam: Present: normal inspection Neurological exam: Present: alert, oriented X3, CN II-XII intact Psychiatric exam: Present: normal affect, normal mood Skin exam: Present: warm, dry, intact, normal color. Absent: rash Course Vital Signs 09/20/16 18:08 Temperature 98.6 F Pulse Rate 88 Respiratory 15 Rate Blood Pressure 128/59 O2 Sat by Pulse 99 Oximetry Medical Decision Making - Medical Decision Making Patient is a 30-year-old female presents to the emergency room for evaluation of left foot/ankle pain. Left foot/ankle x-ray negative for any acute findings. Patient placed in Jaziel wrap and given a prescription for crutches and advised to follow-up with primary care provider symptoms are not improving in 7- 10 days. Patient states she understands everything that was discussed with her. Return parameters discussed. Case discussed Dr. Brady. - Radiology Data Radiology results: report reviewed, image reviewed Disposition Clinical Impression: Sprain of left foot Disposition: HOME SELF-CARE Condition: Good Instructions: Foot Sprain (ED) Additional Instructions: Rest, elevate and ice on and off for 10-15 minutes for the next 24-48 hours. Tylenol or Motrin as needed for pain. Non-weightbearing for 1-2 days. Please follow-up with primary care provider in 7-10 days if symptoms do not improve. If new symptoms develop or symptoms worsen, please return to the ER. Referrals: Nonstaff,Physician [REFERRING] - 1-2 days Time of Disposition: 18:58
--- NOTE | 2016-09-20 18:50 | XR ---
EXAMINATION TYPE: XR foot complete LT DATE OF EXAM: 09/20/2016 COMPARISON: NONE HISTORY: Pain TECHNIQUE: 3 views FINDINGS: I see no fracture nor dislocation. Metatarsals appear intact. Joint spaces appear normal. IMPRESSION: Negative left foot exam.
--- NOTE | 2016-09-20 18:50 | XR ---
EXAMINATION TYPE: XR ankle complete LT DATE OF EXAM: 09/20/2016 COMPARISON: NONE HISTORY: Pain TECHNIQUE: 3 views FINDINGS: I see no fracture nor dislocation. Joint spaces are normal. Soft tissues appear normal. IMPRESSION: Negative left ankle exam.
[2016-09-20] MEDS ORDERED: KETOROLAC 60 MG/2 ML VIAL IM STA (19:15)
== END 2016-09-20 19:37 | disposition home or self-care (01) ==
LOC: EC 18:00
DX: S93.602A Unspecified sprain of left foot, initial encounter (principal); F17.200 Nicotine dependence, unspecified, uncomplicated; Z88.8 Allergy status to other drugs, medicaments and biological substances; Z88.6 Allergy status to analgesic agent; Z79.899 Other long term (current) drug therapy; X50.1XXA Overexertion from prolonged static or awkward postures, initial encounter
CPT/HCPCS: 73610; 73630; 99283; 96372; J1885

== ENCOUNTER 2017-10-25 15:33 | Observation (INO) | payer OTHER ==
[2017-10-25 15:54] LABS: Anisocytosis Slight; Basophils % (A) 0 %; Eosinophils # (A) 0.2 k/uL (0-0.7); Eosinophils % (A) 3 %; HCT 27.4 % (34.0-46.0); HGB 8.5 gm/dL (11.4-16.0); Hypochromasia Marked; Lymphocytes # (A) 1.1 k/uL (1.0-4.8); Lymphocytes % (A) 13 %; MCH 25.4 pg (25.0-35.0); MCHC 30.9 g/dL (31.0-37.0); MCV 82.2 fL (80.0-100.0); Mean Platelet Volume 7.5; Monocytes # (A) 0.3 k/uL (0-1.0); Monocytes % (A) 3 %; Neutrophils # (A) 7.1 k/uL (1.3-7.7); Neutrophils % (A) 81 %; Platelet Count 196 k/uL (150-450); RBC 3.33 m/uL (3.80-5.40); RDW 16.8 % (11.5-15.5); WBC 8.9 k/uL (3.8-10.6)
[2017-10-25] MEDS ORDERED: SODIUM CHLORIDE 0.9% 1,000 ML IV ONE (15:59)
[2017-10-25] MEDS ORDERED: KETOROLAC 30 MG/ML 1 ML VIAL IVP STA (15:59)
--- NOTE | 2017-10-25 16:01 | ED ---
General Adult HPI - General Chief complaint: Seizure Stated complaint: seizure Time Seen by Provider: 10/25/17 15:42 Source: patient, family, EMS, RN notes reviewed, old records reviewed Mode of arrival: EMS Limitations: no limitations - History of Present Illness Initial comments: 32-year-old female with known seizure disorder presents for evaluation of generalized tonic clonic seizure. Patient has not been on antiseizure medication for the past one year. She did have a witnessed seizure by EMS and was given Versed. No postictal period reported. This did occur in a parking lot, there was no specific head injury or injury of any kind. Patient is complaining of generalized pain which is typical status post seizure for this patient. Denies any focal numbness or weakness. - Related Data Home Medications Medication Instructions Recorded Confirmed Ferrous Sulfate [Feosol] 325 mg PO DAILY 08/10/16 08/13/16 Previous Rx's Medication Instructions Recorded levETIRAcetam [Keppra] 1,000 mg PO Q12HR #60 tab 08/23/15 Diazepam [Valium] 5 mg PO DAILY PRN #12 tab 08/17/16 Escitalopram [Lexapro] 10 mg PO DAILY #30 tab 08/17/16 Gabapentin [Neurontin] 400 mg PO TID #45 cap 08/17/16 Ibuprofen [Motrin] 400 mg PO TID PRN tab 08/17/16 Loperamide [Imodium] 2 mg PO QID PRN cap 08/17/16 Ondansetron Odt [Zofran Odt] 4 mg PO Q8HR PRN #20 tab 08/17/16 Pantoprazole [Protonix] 40 mg PO AC-BRKFST #30 tab 08/17/16 Sulfamethox-Tmp 800-160Mg [Bactrim 1 each PO BID #4 tab 08/17/16 DS 800-160 mg] lamoTRIgine [LaMICtal] 25 mg PO BID #60 tab 08/17/16 traZODone HCL [Desyrel] 50 mg PO HS PRN #30 tab 08/17/16 Allergies Allergy/AdvReac Type Severity Reaction Status Date / Time lorazepam [From Ativan] Allergy Anaphylaxis Verified 10/25/17 15:39 tramadol Allergy Rash/Hives Verified 10/25/17 15:39 Review of Systems ROS Statement: Those systems with pertinent positive or pertinent negative responses have been documented in the HPI. ROS Other: All systems not noted in ROS Statement are negative. Past Medical History Past Medical History: Seizure Disorder Additional Past Medical History / Comment(s): Seizure disorder, anxiety, depression, bipolar disorder, chronic headache, right shoulder pain, osteoarthritis, scoliosis,"chronic backpain","head trauma d/t fall during seizure, stated has had 2 strokes not sure of dates, GI reflux, self-mutilation and the patient has had previous history of cutting herself History of Any Multi-Drug Resistant Organisms: MRSA Date of last positivie culture/infection: 2013, (questionably at [facility], per patient) MDRO Source:: back Past Surgical History: Section Additional Past Surgical History / Comment(s): x3 c-sections,ovarian cyst removed,hemorrhoidectomy Past Anesthesia/Blood Transfusion Reactions: No Reported Reaction Additional Past Anesthesia/Blood Transfusion Reaction / Comment(s): clausterphobia Past Psychological History: Anxiety, Bipolar, Depression Smoking Status: Current every day smoker Past Alcohol Use History: None Reported Past Drug Use History: Marijuana - Past Family History Father History Unknown: Yes Family Medical History: Congestive Heart Failure (CHF) Mother History Unknown: Yes General Exam Limitations: no limitations General appearance: alert, in no apparent distress Head exam: Present: atraumatic, normocephalic Eye exam: Present: normal appearance, PERRL, EOMI Neck exam: Present: normal inspection. Absent: tenderness, meningismus Respiratory exam: Present: normal lung sounds bilaterally. Absent: respiratory distress Cardiovascular Exam: Present: regular rate, normal rhythm GI/Abdominal exam: Present: soft. Absent: distended, tenderness Extremities exam: Present: normal inspection, normal capillary refill. Absent: pedal edema Back exam: Present: normal inspection Neurological exam: Present: alert, oriented X3, CN II-XII intact. Absent: motor sensory deficit Psychiatric exam: Present: anxious Skin exam: Present: warm, dry, intact. Absent: cyanosis, diaphoretic Course Vital Signs 10/25/17 10/25/17 15:35 16:40 Temperature 98.8 F Pulse Rate 104 H 81 Respiratory 18 18 Rate Blood Pressure 106/63 103/56 O2 Sat by Pulse 95 99 Oximetry EKG Findings - EKG Comments: EKG Findings:: EKG: Sinus tachycardia, incomplete right bundle, rate of 107, SC interval 132, QRS duration 96, QTC 356, QTC 475. Medical Decision Making - Medical Decision Making 32-year-old female presenting with 2 episodes of tonic-clonic seizure prior to arrival. EMS had given Versed. Patient does have 2 additional tonic-clonic seizures while in the emergency department. She is started back on her Keppra. Laboratory studies reveal normal white blood cell count, hemoglobin is 8.5 hour patient does have history of chronic anemia. Potassium 3.3 which is low, magnesium 1.4 which is low both of these are replaced. Patient will be kept in observation for neurology consultation and she does not have good outpatient follow-up and has been off her meds for some time. She will be restarted on her Keppra, and Lamictal. - Lab Data Result diagrams: 10/25/17 15:45 10/25/17 15:45 Lab Results 10/25/17 10/25/17 10/25/17 Range/Units 15:45 15:45 15:45 WBC 8.9 (3.8-10.6) k/uL RBC 3.33 L (3.80-5.40) m/uL Hgb 8.5 L (11.4-16.0) gm/dL Hct 27.4 L (34.0-46.0) % MCV 82.2 (80.0-100.0) fL MCH 25.4 (25.0-35.0) pg MCHC 30.9 L (31.0-37.0) g/dL RDW 16.8 H (11.5-15.5) % Plt Count 196 (150-450) k/uL Neutrophils % 81 % Lymphocytes % 13 % Monocytes % 3 % Eosinophils % 3 % Basophils % 0 % Neutrophils # 7.1 (1.3-7.7) k/uL Lymphocytes # 1.1 (1.0-4.8) k/uL Monocytes # 0.3 (0-1.0) k/uL Eosinophils # 0.2 (0-0.7) k/uL Basophils # 0.0 (0-0.2) k/uL Hypochromasia Marked Anisocytosis Slight Sodium 142 (137-145) mmol/L Potassium 3.3 L (3.5-5.1) mmol/L Chloride 114 H (98-107) mmol/L Carbon Dioxide 20 L (22-30) mmol/L Anion Gap 8 mmol/L BUN 5 L (7-17) mg/dL Creatinine 0.58 (0.52-1.04) mg/dL Est GFR (CKD-EPI)AfAm >90 (>60 ml/min/1.73 sqM) Est GFR (CKD-EPI)NonAf >90 (>60 ml/min/1.73 sqM) Glucose 88 (74-99) mg/dL Calcium 8.1 L (8.4-10.2) mg/dL Magnesium 1.4 L (1.6-2.3) mg/dL Total Bilirubin 0.6 (0.2-1.3) mg/dL AST 27 (14-36) U/L ALT 23 (9-52) U/L Alkaline Phosphatase 65 (38-126) U/L Total Protein 6.0 L (6.3-8.2) g/dL Albumin 3.4 L (3.5-5.0) g/dL Urine Color Urine Appearance (Clear) Urine pH (5.0-8.0) Ur Specific [place] (1.001-1.035) Urine Protein (Negative) Urine Glucose (UA) (Negative) Urine Ketones (Negative) Urine Blood (Negative) Urine Nitrite (Negative) Urine Bilirubin (Negative) Urine Urobilinogen (<2.0) mg/dL Ur Leukocyte Esterase (Negative) Urine RBC (0-5) /hpf Urine WBC (0-5) /hpf Ur Squamous Epith Cells (0-4) /hpf Urine Bacteria (None) /hpf Urine HCG, Qual Not Detected (Not Detectd) Urine Opiates Screen (NotDetected) Ur Oxycodone Screen (NotDetected) Urine Methadone Screen (NotDetected) Ur Propoxyphene Screen (NotDetected) Ur Barbiturates Screen (NotDetected) U Tricyclic Antidepress (NotDetected) Ur Phencyclidine Scrn (NotDetected) Ur Amphetamines Screen (NotDetected) U Methamphetamines Scrn (NotDetected) U Benzodiazepines Scrn (NotDetected) Urine Cocaine Screen (NotDetected) U Marijuana (THC) Screen (NotDetected) 08/23/18 08/23/18 Range/Units 15:45 15:45 WBC (3.8-10.6) k/uL RBC (3.80-5.40) m/uL Hgb (11.4-16.0) gm/dL Hct (34.0-46.0) % MCV (80.0-100.0) fL MCH (25.0-35.0) pg MCHC (31.0-37.0) g/dL RDW (11.5-15.5) % Plt Count (150-450) k/uL Neutrophils % % Lymphocytes % % Monocytes % % Eosinophils % % Basophils % % Neutrophils # (1.3-7.7) k/uL Lymphocytes # (1.0-4.8) k/uL Monocytes # (0-1.0) k/uL Eosinophils # (0-0.7) k/uL Basophils # (0-0.2) k/uL Hypochromasia Anisocytosis Sodium (137-145) mmol/L Potassium (3.5-5.1) mmol/L Chloride (98-107) mmol/L Carbon Dioxide (22-30) mmol/L Anion Gap mmol/L BUN (7-17) mg/dL Creatinine (0.52-1.04) mg/dL Est GFR (CKD-EPI)AfAm (>60 ml/min/1.73 sqM) Est GFR (CKD-EPI)NonAf (>60 ml/min/1.73 sqM) Glucose (74-99) mg/dL Calcium (8.4-10.2) mg/dL Magnesium (1.6-2.3) mg/dL Total Bilirubin (0.2-1.3) mg/dL AST (14-36) U/L ALT (9-52) U/L Alkaline Phosphatase (38-126) U/L Total Protein (6.3-8.2) g/dL Albumin (3.5-5.0) g/dL Urine Color Yellow Urine Appearance Clear (Clear) Urine pH 7.5 (5.0-8.0) Ur Specific [place] 1.009 (1.001-1.035) Urine Protein 1+ H (Negative) Urine Glucose (UA) Negative (Negative) Urine Ketones Negative (Negative) Urine Blood Moderate H (Negative) Urine Nitrite Negative (Negative) Urine Bilirubin Negative (Negative) Urine Urobilinogen <2.0 (<2.0) mg/dL Ur Leukocyte Esterase Trace H (Negative) Urine RBC 1 (0-5) /hpf Urine WBC 6 H (0-5) /hpf Ur Squamous Epith Cells 2 (0-4) /hpf Urine Bacteria Occasional H (None) /hpf Urine HCG, Qual (Not Detectd) Urine Opiates Screen Detected H (NotDetected) Ur Oxycodone Screen Not Detected (NotDetected) Urine Methadone Screen Not Detected (NotDetected) Ur Propoxyphene Screen Not Detected (NotDetected) Ur Barbiturates Screen Not Detected (NotDetected) U Tricyclic Antidepress Not Detected (NotDetected) Ur Phencyclidine Scrn Not Detected (NotDetected) Ur Amphetamines Screen Not Detected (NotDetected) U Methamphetamines Scrn Not Detected (NotDetected) U Benzodiazepines Scrn Not Detected (NotDetected) Urine Cocaine Screen Not Detected (NotDetected) U Marijuana (THC) Screen Detected H (NotDetected) Disposition Clinical Impression: Generalized seizure, Status epilepticus Disposition: ADMITTED IP TO [facility] Condition: Stable Is patient prescribed a controlled substance at d/c from ED?: No Referrals: None,Stated [Primary Care Provider] - 1-2 days Decision to Admit Reason: Admit from EC Decision Date: 10/25/17 Decision Time: 16:54
[2017-10-25 16:03] LABS: Anion Gap 8 mmol/L; Carbon Dioxide 20 mmol/L (22-30); Chloride 114 mmol/L (98-107); Glucose 88 mg/dL (74-99); Potassium 3.3 mmol/L (3.5-5.1); Sodium 142 mmol/L (137-145)
[2017-10-25 16:04] LABS: ALT 23 U/L (9-52); AST 27 U/L (14-36); Albumin 3.4 g/dL (3.5-5.0); Alkaline Phosphatase 65 U/L (38-126); Blood Urea Nitrogen 5 mg/dL (7-17); Calcium 8.1 mg/dL (8.4-10.2); Magnesium 1.4 mg/dL (1.6-2.3); Total Bilirubin 0.6 mg/dL (0.2-1.3)
[2017-10-25] MEDS ORDERED: POTASSIUM CHLORIDE ER 20 MEQ TAB.ER PO STA ×2 (16:14→17:38)
[2017-10-25] MEDS ORDERED: levETIRAcetam IV 1,000 MG in SALINE 1 100ML.BAG IVPB STA (16:14)
[2017-10-25] MEDS ORDERED: MAGNESIUM SULFATE-D5W PMX 1 GM in DEXTROSE/WATER 1 100ML.BAG IVPB ONE (16:14)
[2017-10-25 16:17] LABS: Appearance,Urine Clear (Clear); Bacteria,Urine Occasional /hpf; Bilirubin,Urine Negative (Negative); Blood,Urine Moderate (Negative); Color,Urine Yellow; Glucose,Urine (UA) Negative (Negative); Ketones,Urine Negative (Negative); Leukocyte Esterase,Urine Trace (Negative); Nitrite,Urine Negative (Negative); PH, Urine 7.5 (5.0-8.0); Protein,Urine 1+ (Negative); RBC,Urine 1 /hpf (0-5); Specific Gravity,Urine 1.009 (1.001-1.035); Squamous Epithelial Cell,Urine 2 /hpf (0-4); Urobilinogen,Urine <2.0 mg/dL (<2.0); WBC,Urine 6 /hpf (0-5)
[2017-10-25 16:25] LABS: Amphetamine Screen,Urine Not Detected (NotDetected); Barbiturate Screen,Urine Not Detected (NotDetected); Benzodiazepines Screen,Urine Not Detected (NotDetected); Cocaine Screen,Urine Not Detected (NotDetected); Methadone Screen, Urine Not Detected (NotDetected); Opiate Screen,Urine Detected (NotDetected); Oxycodone Screen, Urine Not Detected (NotDetected); Phencyclidine Screen,Urine Not Detected (NotDetected); Tricyclic Antidepressant,Urine Not Detected (NotDetected); Urn Cannabinoid Scrn Detected (NotDetected)
[2017-10-25] MEDS ORDERED: MIDAZOLAM 1 MG/ML 5 ML VIAL IV PRN (16:50)
[2017-10-25] MEDS ORDERED: ACETAMINOPHEN TAB 325 MG TAB PO PRN (16:54)
[2017-10-25] MEDS ORDERED: IBUPROFEN 400 MG TAB PO PRN (16:54)
[2017-10-25] MEDS ORDERED: NALOXONE 0.4 MG/ML 1 ML VIAL IV PRN (16:54)
[2017-10-25] MEDS ORDERED: SODIUM CHLORIDE 0.9% 1,000 ML IV SCH (17:00)
[2017-10-25] MEDS ORDERED: ONDANSETRON ODT 4 MG TAB PO PRN (17:36)
--- NOTE | 2017-10-25 17:47 | P.HPIM ---
History of Present Illness 32-year-old female came to ER for generalized tonic clonic seizures patient has multiple seizures in the EMS apparently. Tonic-clonic activity was not witnessed by the nursing staff here. Patient is crying patient is not postictal patient says she bit her lower lip during the seizure activity. Patient denied any aura symptoms oral like symptoms. Denied any fever chills dysuria nausea vomiting cough. Patient does smoke denied any alcohol abuse urine drug screen is positive for opiates patient has not been taking her antiseizure medications are Xanax for about 3 months since she lost her insurance and unable to see any neurologist as an outpatient. Patient does have seasonal she is a history was intubated at one point of time for status epilepticus. Patient loses had bladder incontinence whenever she had a seizure. Urine drug screen is positive for opiates and marijuana. Patient is tearful crying is comparing of generalized body aches and pain in the posterior neck area where she hit during one of the seizure episodes Review of Systems REVIEW OF SYSTEMS: CONSTITUTIONAL: No fever, no malaise, no fatigue. HEENT: No recent visual problems or hearing problems. Denied any sore throat. CARDIOVASCULAR: No chest pain, orthopnea, PND, no palpitations, no syncope. PULMONARY: No shortness of breath, no cough, no hemoptysis. GASTROINTESTINAL: No diarrhea, no nausea, no vomiting, no abdominal pain. Normoactive bowel sounds. NEUROLOGICAL: No headaches, no weakness, no numbness. HEMATOLOGICAL: Denies any bleeding or petechiae. GENITOURINARY: Denies any burning micturition, frequency, or urgency. MUSCULOSKELETAL/RHEUMATOLOGICAL: Denies any joint pain, swelling, or any muscle pain. ENDOCRINE: Denies any polyuria or polydipsia. The rest of the 14-point review of systems is negative. Past Medical History Past Medical History: Seizure Disorder Additional Past Medical History / Comment(s): Seizure disorder, anxiety, depression, bipolar disorder, chronic headache, right shoulder pain, osteoarthritis, scoliosis,"chronic backpain","head trauma d/t fall during seizure, stated has had 2 strokes not sure of dates, GI reflux, self-mutilation and the patient has had previous history of cutting herself History of Any Multi-Drug Resistant Organisms: MRSA Date of last positivie culture/infection: 2013, (questionably at [facility], per patient) MDRO Source:: back Past Surgical History: Section Additional Past Surgical History / Comment(s): x3 c-sections,ovarian cyst removed,hemorrhoidectomy Past Anesthesia/Blood Transfusion Reactions: No Reported Reaction Additional Past Anesthesia/Blood Transfusion Reaction / Comment(s): clausterphobia Past Psychological History: Anxiety, Bipolar, Depression Smoking Status: Current every day smoker Past Alcohol Use History: None Reported Past Drug Use History: Marijuana - Past Family History Father History Unknown: Yes Family Medical History: Congestive Heart Failure (CHF) Mother History Unknown: Yes Medications and Allergies Home Medications Medication Instructions Recorded Confirmed Type levETIRAcetam [Keppra] 1,000 mg PO Q12HR #60 tab 08/23/15 10/25/17 Rx Diazepam [Valium] 5 mg PO DAILY PRN #12 tab 08/17/16 10/25/17 Rx Ondansetron Odt [Zofran Odt] 4 mg PO Q8HR PRN #20 tab 08/17/16 10/25/17 Rx lamoTRIgine [LaMICtal] 25 mg PO BID #60 tab 08/17/16 10/25/17 Rx ALPRAZolam [Xanax] 0.5 mg PO BID PRN 10/25/17 10/25/17 History Allergies Allergy/AdvReac Type Severity Reaction Status Date / Time lorazepam [From Ativan] Allergy Anaphylaxis Verified 10/25/17 17:10 tramadol Allergy Rash/Hives Verified 10/25/17 17:10 Physical Exam Vitals: Vital Signs Temp Pulse Resp BP Pulse Ox 10/25/17 16:40 81 18 103/56 99 10/25/17 15:35 98.8 F 104 H 18 106/63 95 Intake and Output 10/25/17 10/25/17 10/25/17 06:59 14:59 22:59 Other: Weight 57.606 kg PHYSICAL EXAMINATION: GENERAL: The patient is alert and oriented x3, not in any acute distress. Well developed, well nourished. She is tearful because of generalized body aches pains everywhere. HEENT: Pupils are round and equally reacting to light. EOMI. No scleral icterus. No conjunctival pallor. Normocephalic, atraumatic. No pharyngeal erythema. No thyromegaly. CARDIOVASCULAR: S1 and S2 present. No murmurs, rubs, or gallops. PULMONARY: Chest is clear to auscultation, no wheezing or crackles. ABDOMEN: Soft, nontender, nondistended, normoactive bowel sounds. No palpable organomegaly. MUSCULOSKELETAL: No joint swelling or deformity. EXTREMITIES: No cyanosis, clubbing, or pedal edema. NEUROLOGICAL: Gross neurological examination did not reveal any focal deficits. SKIN: No rashes. Results CBC & Chem 7: 10/25/17 15:45 10/25/17 15:45 Labs: Abnormal Lab Results - Last 24 Hours (Table) 10/25/17 10/25/17 10/25/17 Range/Units 15:45 15:45 15:45 RBC 3.33 L (3.80-5.40) m/uL Hgb 8.5 L (11.4-16.0) gm/dL Hct 27.4 L (34.0-46.0) % MCHC 30.9 L (31.0-37.0) g/dL RDW 16.8 H (11.5-15.5) % Potassium 3.3 L (3.5-5.1) mmol/L Chloride 114 H (98-107) mmol/L Carbon Dioxide 20 L (22-30) mmol/L BUN 5 L (7-17) mg/dL Calcium 8.1 L (8.4-10.2) mg/dL Magnesium 1.4 L (1.6-2.3) mg/dL Total Protein 6.0 L (6.3-8.2) g/dL Albumin 3.4 L (3.5-5.0) g/dL Urine Protein 1+ H (Negative) Urine Blood Moderate H (Negative) Ur Leukocyte Esterase Trace H (Negative) Urine WBC 6 H (0-5) /hpf Urine Bacteria Occasional H (None) /hpf Urine Opiates Screen (NotDetected) U Marijuana (THC) Screen (NotDetected) 10/25/17 Range/Units 15:45 RBC (3.80-5.40) m/uL Hgb (11.4-16.0) gm/dL Hct (34.0-46.0) % MCHC (31.0-37.0) g/dL RDW (11.5-15.5) % Potassium (3.5-5.1) mmol/L Chloride (98-107) mmol/L Carbon Dioxide (22-30) mmol/L BUN (7-17) mg/dL Calcium (8.4-10.2) mg/dL Magnesium (1.6-2.3) mg/dL Total Protein (6.3-8.2) g/dL Albumin (3.5-5.0) g/dL Urine Protein (Negative) Urine Blood (Negative) Ur Leukocyte Esterase (Negative) Urine WBC (0-5) /hpf Urine Bacteria (None) /hpf Urine Opiates Screen Detected H (NotDetected) U Marijuana (THC) Screen Detected H (NotDetected) Assessment and Plan Plan: -Seizures due to noncompliance with medications patient. Patient will be started on Keppra medazepam as needed for seizures. As per the patient Ativan makes her to have more seizures. EEG will be obtained neurology was consulted. Computed tomography scan of the head will be obtained. Bipolar disorder -Asymptomatic bacteriuria will not require any antibiotics -Nicotine use: Counseling was provided Opiate abuse in the marijuana use: Counseling was provided Non-anion gap metabolic acidosis secondary to hyperchloremia
[2017-10-25] MEDS: NICOTINE 14MG/24HR PATCH TRANSDERM SCH (20:09)
[2017-10-25] MEDS ORDERED: 0.9% NACL WITH KCL 20 MEQ/L 1,000 ML IV SCH ×2 (20:30→21:30)
[2017-10-25] MEDS: HYDROcodone/APAP 5-325MG 1 EACH TAB PO PRN (20:38)
[2017-10-25] MEDS ORDERED: levETIRAcetam 500 MG TAB PO SCH (21:00)
[2017-10-25] MEDS ORDERED: levETIRAcetam IV 1,000 MG in SALINE 1 100ML.BAG IVPB SCH (21:00)
[2017-10-25] MEDS ORDERED: lamoTRIgine 25 MG TAB PO SCH (21:00)
[2017-10-25] MEDS: KETOROLAC 30 MG/ML 1 ML VIAL IVP PRN (21:52)
[2017-10-25] MEDS: POTASSIUM CHLORIDE 20 MEQ in WATER FOR INJECTION 1 100ML.BAG IVPB SCH (21:53)
--- NOTE | 2017-10-25 22:28 | CT ---
EXAMINATION: CT brain wo con DATE AND TIME: 10/25/2017 6:38 PM CLINICAL INDICATION: Seizures TECHNIQUE: Standard departmental protocol. 776.2 COMPARISON: [id number] FINDINGS: The calvarium is intact. There is no intracranial hemorrhage. There is no intracranial mass or mass effect. No definite new intra-axial or extra-axial attenuation defect. The paranasal sinuses, middle ear cavities, and mastoid sinus air cells are clear. The orbits are unremarkable. IMPRESSION: NO ACUTE PROCESS.
[2017-10-25] MEDS: GABAPENTIN 400 MG CAP PO SCH (23:01)
[2017-10-26] MEDS: POTASSIUM CHLORIDE 20 MEQ in WATER FOR INJECTION 1 100ML.BAG IVPB SCH
[2017-10-26] MEDS: HYDROcodone/APAP 5-325MG 1 EACH TAB PO PRN ×3 (00:04→13:03)
[2017-10-26] MEDS: KETOROLAC 30 MG/ML 1 ML VIAL IVP PRN ×2 (03:52→11:51)
[2017-10-26 06:13] VITALS: BP 105/69; PULSE 51; RESP 16; TEMP 97.9
[2017-10-26 08:37] LABS: Anisocytosis Slight; HCT 36.8 % (34.0-46.0); Hypochromasia Marked; MCH 24.9 pg (25.0-35.0); MCHC 29.7 g/dL (31.0-37.0); MCV 83.7 fL (80.0-100.0); Mean Platelet Volume 7.1; Platelet Count 245 k/uL (150-450); WBC 7.7 k/uL (3.8-10.6)
[2017-10-26 08:47] LABS: Anion Gap 5 mmol/L; Blood Urea Nitrogen 4 mg/dL (7-17); Calcium 9.7 mg/dL (8.4-10.2); Carbon Dioxide 27 mmol/L (22-30); Chloride 109 mmol/L (98-107); Glucose 98 mg/dL (74-99); Potassium 5.7 mmol/L (3.5-5.1); Sodium 141 mmol/L (137-145)
[2017-10-26] MEDS: GABAPENTIN 400 MG CAP PO SCH (08:49)
[2017-10-26] MEDS: NICOTINE 14MG/24HR PATCH TRANSDERM SCH (08:50)
[2017-10-26] MEDS ORDERED: OXcarbazepine 300 MG TAB PO SCH (09:00)
[2017-10-26] MEDS ORDERED: ESCITALOPRAM 10 MG TAB PO SCH (09:00)
--- NOTE | 2017-10-26 11:34 | P.DS ---
Providers Date of admission: 10/25/17 17:03 Attending physician: Catalino Grider Consults: 10/25/17 16:55 Consult Physician Routine Consulting Provider: Shanae Meyers Consult Reason/Comments: status epilepticus Do you want consulting provider notified?: Yes Primary care physician: Stated None Hospital Course: 32-year-old female came to ER for generalized tonic clonic seizures patient has multiple seizures in the EMS apparently. Tonic-clonic activity was not witnessed by the nursing staff here. Patient is crying patient is not postictal patient says she bit her lower lip during the seizure activity. Patient denied any aura symptoms oral like symptoms. Denied any fever chills dysuria nausea vomiting cough. Patient does smoke denied any alcohol abuse urine drug screen is positive for opiates patient has not been taking her antiseizure medications are Xanax for about 3 months since she lost her insurance and unable to see any neurologist as an outpatient. Patient does have seasonal she is a history was intubated at one point of time for status epilepticus. Patient loses had bladder incontinence whenever she had a seizure. Urine drug screen is positive for opiates and marijuana. Patient is tearful crying is comparing of generalized body aches and pain in the posterior neck area where she hit during one of the seizure episodes. 10/26/2017 Patient was started on Trileptal and patient will undergo EEG after that patient will follow with Dr. Norris and Dr. Alvarez as an outpatient. Patient's potassium is high patient is receiving IV potassium supplementation. Since this is being discontinued and expecting her potassium to go down.. PHYSICAL EXAMINATION: GENERAL: The patient is alert and oriented x3, not in any acute distress. Well developed, well nourished. She is tearful because of generalized body aches pains everywhere. HEENT: Pupils are round and equally reacting to light. EOMI. No scleral icterus. No conjunctival pallor. Normocephalic, atraumatic. No pharyngeal erythema. No thyromegaly. CARDIOVASCULAR: S1 and S2 present. No murmurs, rubs, or gallops. PULMONARY: Chest is clear to auscultation, no wheezing or crackles. ABDOMEN: Soft, nontender, nondistended, normoactive bowel sounds. No palpable organomegaly. MUSCULOSKELETAL: No joint swelling or deformity. EXTREMITIES: No cyanosis, clubbing, or pedal edema. NEUROLOGICAL: Gross neurological examination did not reveal any focal deficits. SKIN: No rashes. Assessment and Plan Plan: -Seizures due to noncompliance with medications patient. -Asymptomatic bacteriuria will not require any antibiotics -Nicotine use: Counseling was provided Opiate abuse in the marijuana use: Counseling was provided Non-anion gap metabolic acidosis secondary to hyperchloremia Hyperchloremia secondary to excessive potassium supplementation which is expected to improve as this is being discontinued. Patient Condition at Discharge: Stable Plan - Discharge Summary Discharge Rx Participant: No New Discharge Prescriptions: New Escitalopram [Lexapro] 10 mg PO DAILY #30 tab Gabapentin [Neurontin] 400 mg PO TID #90 cap OXcarbazepine [Trileptal] 600 mg PO BID #60 tab OXcarbazepine [Trileptal] 300 mg PO BID #60 tab Continue Ondansetron Odt [Zofran ODT] 4 mg PO Q8HR PRN #20 tab PRN Reason: nausea Discontinued levETIRAcetam [Keppra] 1,000 mg PO Q12HR #60 tab Diazepam [Valium] 5 mg PO DAILY PRN #12 tab PRN Reason: Anxiety lamoTRIgine [LaMICtal] 25 mg PO BID #60 tab ALPRAZolam [Xanax] 0.5 mg PO BID PRN PRN Reason: Anxiety Discharge Medication List Ondansetron Odt [Zofran ODT] 4 mg PO Q8HR PRN #20 tab 08/17/16 [Rx] Escitalopram [Lexapro] 10 mg PO DAILY #30 tab 10/26/17 [Rx] Gabapentin [Neurontin] 400 mg PO TID #90 cap 10/26/17 [Rx] OXcarbazepine [Trileptal] 300 mg PO BID #60 tab 10/26/17 [Rx] OXcarbazepine [Trileptal] 600 mg PO BID #60 tab 10/26/17 [Rx] Follow up Appointment(s)/Referral(s): Nohemy Alvarez MD [STAFF PHYSICIAN] - 1-2 Days Shanae Meyers MD [STAFF PHYSICIAN] - 1 Week None,Stated [Primary Care Provider] - 1-2 days Discharge Disposition: HOME SELF-CARE
--- NOTE | 2017-10-26 23:51 | P.CNNES ---
History of Present Illness Consult date: 10/26/17 Requesting physician: Geovani Brady Reason for Consult: Seizure Chief complaint: Seizure History of Present Illness: Neurology is consulting on a 32-year-old female with history of status epilepticus. Patient is currently financially challenged and was previously prescribed Keppra for seizure disorder. Patient has not had seizure medication in greater than 18 months. Patient began having generalized tonic-clonic seizure at home and was brought to the emergency department. Patient does have history of bipolar disorder 1, PTSD, schizoaffective disorder. Patient stated also that while she was utilizing Keppra from her previous neurologist, patient began having aggressive tendencies. Patient's dose of Keppra at the time was 1000 mg twice a day. Patient CT brain in the ED was negative for acute process or other findings. Patient's EEG was ordered. On contact, patient was alert and oriented 3, no acute distress, resting in bed. Review of Systems all systems not noted in HPI are negative Past Medical History Past Medical History: Seizure Disorder Additional Past Medical History / Comment(s): Seizure disorder, anxiety, depression, bipolar disorder, chronic headache, right shoulder pain, osteoarthritis, scoliosis,"chronic backpain","head trauma d/t fall during seizure, stated has had 2 strokes not sure of dates, GI reflux, self-mutilation and the patient has had previous history of cutting herself History of Any Multi-Drug Resistant Organisms: MRSA Date of last positivie culture/infection: 2013, (questionably at [facility], per patient) MDRO Source:: back Past Surgical History: Section Additional Past Surgical History / Comment(s): x3 c-sections,ovarian cyst removed,hemorrhoidectomy Past Anesthesia/Blood Transfusion Reactions: No Reported Reaction Additional Past Anesthesia/Blood Transfusion Reaction / Comment(s): clausterphobia Smoking Status: Current every day smoker - Past Family History Father History Unknown: Yes Family Medical History: Congestive Heart Failure (CHF) Mother History Unknown: Yes Medications and Allergies Home Medications Medication Instructions Recorded Confirmed Type Ondansetron Odt [Zofran ODT] 4 mg PO Q8HR PRN #20 tab 08/17/16 10/25/17 Rx Escitalopram [Lexapro] 10 mg PO DAILY #30 tab 10/26/17 Rx Gabapentin [Neurontin] 400 mg PO TID #90 cap 10/26/17 Rx OXcarbazepine [Trileptal] 300 mg PO BID #60 tab 10/26/17 Rx OXcarbazepine [Trileptal] 600 mg PO BID #60 tab 10/26/17 Rx Allergies Allergy/AdvReac Type Severity Reaction Status Date / Time lorazepam [From Ativan] Allergy Anaphylaxis Verified 10/25/17 17:10 tramadol Allergy Rash/Hives Verified 10/25/17 17:10 Physical Examination - Vital Signs Vital Signs: Vital Signs Temp Pulse Resp BP Pulse Ox 10/26/17 09:27 51 L 16 10/26/17 06:12 97.9 F 51 L 16 105/69 100 10/26/17 00:00 18 Intake and Output 10/26/17 10/26/17 10/27/17 14:59 22:59 06:59 Intake Total 1020 Balance 1020 Intake: Intake, IV Titration 300 Amount 0.9% NaCl with KCl 20 Meq 300 /l 1,000 ml @ 75 mls/hr IV .[id number] AZUL Rx#: [id number] Oral 720 Other: Voiding Method Bedpan # Voids 1 General appearance: Alert & oriented x3, no apparent distress. Head: Atraumatic, normocephalic, normal inspection Eyes: Well appearance, PERRLA, EOMI. Absent scleral icterus, conjunctival injection, nystagmus, periorbital swelling. Ear, nose and throat: Normal exam, mucous membranes moist Neck: Normal inspection, absent tenderness, lymphadenopathy. Respiratory: No increased work of breathing Cardiovascular: Regular rate, rhythm GI/abdominal: No guarding Extremities: Full range of motion, normal capillary refill, no tenderness, pedal edema joint swelling, calf tenderness. Neurological: cranial nerves II through XII intact no lateralizing weakness no seizure activity noted on physical exam no pronator drift and no nystagmus. Left lower extremity: 5/5 Right lower extremity: 5/5 Left upper extremity: 5/5 Right upper extremity:5 /5 Sensation: Left lower extremity: normal Right lower extremity: normal Left upper extremity: normal Right upper extremity:normal Psychological: Mood and Affect appropriate for setting Results - Laboratory Findings CBC and BMP: 10/26/17 08:05 10/26/17 08:05 Abnormal Lab Findings: Abnormal Labs 10/25/17 10/25/17 10/25/17 15:45 15:45 15:45 RBC 3.33 L Hgb 8.5 L Hct 27.4 L MCH MCHC 30.9 L RDW 16.8 H Potassium 3.3 L Chloride 114 H Carbon Dioxide 20 L BUN 5 L Calcium 8.1 L Magnesium 1.4 L Total Protein 6.0 L Albumin 3.4 L Urine Protein 1+ H Urine Blood Moderate H Ur Leukocyte Esterase Trace H Urine WBC 6 H Urine Bacteria Occasional H Urine Opiates Screen U Marijuana (THC) Screen 10/25/17 10/26/17 10/26/17 15:45 08:05 08:05 RBC Hgb 11.0 L Hct MCH 24.9 L MCHC 29.7 L RDW 17.0 H Potassium 5.7 H Chloride 109 H Carbon Dioxide BUN 4 L Calcium Magnesium Total Protein Albumin Urine Protein Urine Blood Ur Leukocyte Esterase Urine WBC Urine Bacteria Urine Opiates Screen Detected H U Marijuana (THC) Screen Detected H Assessment and Plan (1) Generalized seizure Narrative/Plan: Patient does have documented history of generalized tonic-clonic seizure. Patient is intermittently compliant with medication due to limited financial resources. Patient was previously prescribed Keppra 1000 mg twice a day by previous neurologist. Patient has been off medication for approximately 18 months. Patient just recently began having increased seizure activity. It is unclear why the patient was continued on Keppra given her significant psychological history as well as self-reported adverse effects of aggression. Given these findings, I am going to discontinue the patient's Keppra loading at this time. Patient will be transitioned to Trileptal 300 mg twice a day 7 days then 600 mg twice a day and hold until seen in the office. Patient's CT of the brain noted no acute process. EEG was taken. Neurology continue to follow for the next 24 hours for verification of seizure medication implementation and any possible adverse effects. Status: Acute Code(s): R56.9 - UNSPECIFIED CONVULSIONS SNOMED Code(s): 949146441 (2) PTSD (post-traumatic stress disorder) Status: Acute Code(s): F43.10 - POST-TRAUMATIC STRESS DISORDER, UNSPECIFIED SNOMED Code(s): 69309097 (3) Schizoaffective disorder Status: Acute Code(s): F25.9 - SCHIZOAFFECTIVE DISORDER, UNSPECIFIED SNOMED Code(s): 80718548 (4) Bipolar disorder Status: Acute Code(s): F31.9 - BIPOLAR DISORDER, UNSPECIFIED SNOMED Code(s) : 90520966 Plan: Status: Neurology will continue to follow and provide updates as needed or warranted. Contact our office with any questions I have discussed the plan of care with the physician prior to implementation and he agrees with the plan as implemented.
--- NOTE | 2017-10-29 20:12 | EEG ---
ELECTROENCEPHALOGRAM REPORT DATE OF SERVICE: 10/26/2017 REASON FOR TESTING: Seizure. CURRENT ANTIEPILEPTIC MEDICATION: Trileptal and Neurontin. DESCRIPTION OF THE PROCEDURE: This EEG was performed using a 21-channel digital electroencephalograph, following international 10-20 system. DESCRIPTION OF THE RECORDING: From the beginning of the tracing, and with the patient's eyes closed, the background rhythm was mostly consisting of 9 Hz alpha frequency in the posterior occipital lead. No obvious asymmetry is seen. Photic stimulation was performed with a minimal driving response seen. No pathological waves were elicited. Hyperventilation was performed with a minimal buildup of amplitude seen. Again, no pathological waves were elicited. Occasional movement artifacts are seen. The patient does reach stage II of sleep during the tracing and occasional sleep spindles are seen. Occasional muscle artifacts are seen. Her EKG lead showed a regular rate and rhythm. INTERPRETATION: This asleep and awake EEG can be considered within normal limits. There was no asymmetry seen. No epileptiform discharges were noticed. The absence of epileptiform discharges does not rule out the diagnosis of epilepsy; therefore clinical correlation is recommended. MMODL / IJN: [id number] /
[2017-11-03] MEDS ORDERED: OXcarbazepine 300 MG TAB PO SCH (09:00)
== END 2017-10-26 15:35 | disposition home or self-care (01) ==
LOC: EC 15:33 → INTOOBSV 17:03 → 5MS5E 17:03 → UNDODISIN 10-26 15:35
PROVIDERS: ADMIT Hospitalist; ATTEND Hospitalist
DX: G40.401 Other generalized epilepsy and epileptic syndromes, not intractable, with status epilepticus (principal); E87.2 Acidosis; F31.9 Bipolar disorder, unspecified; F41.9 Anxiety disorder, unspecified; F43.10 Post-traumatic stress disorder, unspecified; K21.9 Gastro-esophageal reflux disease without esophagitis; E87.8 Other disorders of electrolyte and fluid balance, not elsewhere classified; F25.9 Schizoaffective disorder, unspecified; T42.6X6A Underdosing of other antiepileptic and sedative-hypnotic drugs, initial encounter; Z91.120 Patient's intentional underdosing of medication regimen due to financial hardship; Z91.14 Patient's other noncompliance with medication regimen; F17.200 Nicotine dependence, unspecified, uncomplicated; M19.90 Unspecified osteoarthritis, unspecified site; G89.29 Other chronic pain; M54.9 Dorsalgia, unspecified; D64.9 Anemia, unspecified; F11.10 Opioid abuse, uncomplicated; F40.240 Claustrophobia; Z86.14 Personal history of Methicillin resistant Staphylococcus aureus infection; Z86.73 Personal history of transient ischemic attack (TIA), and cerebral infarction without residual deficits; Z91.5 Personal history of self-harm; Z79.899 Other long term (current) drug therapy; Z88.5 Allergy status to narcotic agent; Z88.8 Allergy status to other drugs, medicaments and biological substances; Z82.49 Family history of ischemic heart disease and other diseases of the circulatory system
CPT/HCPCS: 96376 ×2; 96365 ×2; 96366 ×3; 96367; 96368 ×2; 96375; 99285; 36415; 95819; 95816; 93005; 80053; 80048; 83735; 85025; 85027; 81001; 81025; 80306; 70450; G0378 ×2; S4990 ×2; J3480 ×2; J1885 ×2; J3475; J1953

== ENCOUNTER 2019-04-01 10:42 | Emergency (ER) | payer OTHER ==
[2019-04-01 11:04] VITALS: BP 149/99
[2019-04-01] MEDS ORDERED: ONDANSETRON 4 MG/2 ML VIAL IVP STA (11:35)
[2019-04-01] MEDS ORDERED: SODIUM CHLORIDE 0.9% 1,000 ML IV STA (11:35)
[2019-04-01] MEDS ORDERED: HYDROmorphone 1 MG/ML 1 ML SYRINGE IVP STA (11:35)
[2019-04-01 11:48] LABS: Anisocytosis Slight; Basophils # (A) 0.1 k/uL (0-0.2); Basophils % (A) 1 %; Eosinophils # (A) 0.4 k/uL (0-0.7); Eosinophils % (A) 3 %; HCT 42.1 % (34.0-46.0); HGB 13.2 gm/dL (11.4-16.0); Lymphocytes # (A) 2.5 k/uL (1.0-4.8); Lymphocytes % (A) 22 %; MCH 25.9 pg (25.0-35.0); MCHC 31.3 g/dL (31.0-37.0); MCV 82.7 fL (80.0-100.0); Mean Platelet Volume 7.3; Monocytes # (A) 0.5 k/uL (0-1.0); Monocytes % (A) 4 %; Neutrophils % (A) 69 %; Platelet Count 310 k/uL (150-450); RBC 5.09 m/uL (3.80-5.40); RDW 17.1 % (11.5-15.5); WBC 11.6 k/uL (3.8-10.6)
[2019-04-01 11:53] LABS: Appearance,Urine Cloudy (Clear); Bacteria,Urine Rare /hpf; Bilirubin,Urine Negative (Negative); Blood,Urine Moderate (Negative); Budding Yeast,Urine Occasional /hpf; Color,Urine Light Yellow; Glucose,Urine (UA) Negative (Negative); Ketones,Urine Negative (Negative); Leukocyte Esterase,Urine Moderate (Negative); Nitrite,Urine Negative (Negative); Protein,Urine Negative (Negative); RBC,Urine 2 /hpf (0-5); Specific Gravity,Urine 1.006 (1.001-1.035); Squamous Epithelial Cell,Urine 4 /hpf (0-4); Urobilinogen,Urine <2.0 mg/dL (<2.0); WBC,Urine 18 /hpf (0-5)
[2019-04-01 12:01] LABS: ALT 19 U/L (4-34); AST 31 U/L (14-36); African American GFR (CKD) >90 (>60 ml/min/1.73 sqM); Alkaline Phosphatase 106 U/L (38-126); Amylase 50 U/L (30-110); Anion Gap 11 mmol/L; Blood Urea Nitrogen 10 mg/dL (7-17); Calcium 9.8 mg/dL (8.4-10.2); Carbon Dioxide 23 mmol/L (22-30); Chloride 106 mmol/L (98-107); Glucose 98 mg/dL (74-99); Non-African American GFR(CKD) >90 (>60 ml/min/1.73 sqM); Potassium 4.3 mmol/L (3.5-5.1); Sodium 140 mmol/L (137-145); Total Protein 8.7 g/dL (6.3-8.2)
--- NOTE | 2019-04-01 12:01 | ED ---
General Adult HPI - General Chief complaint: Abdominal Pain Stated complaint: abd pain Time Seen by Provider: 04/01/19 11:05 Source: patient, RN notes reviewed, old records reviewed Mode of arrival: ambulatory - History of Present Illness Initial comments: This is a 33-year-old female who presents emergency department stating that approximately 2 hours apart arrival she started having some left-sided mid abdominal pain. Patient states it then radiated to her back in the CVA region. Patient states pain became severe and she vomited times one. Patient states she did have a bowel movement today and there was blood in it as well. Patient states the pain is been constant. Patient states she's never had anything similar to this. Patient denies any vaginal bleeding or discharge. Patient denies any drug use. Patient denies any chest pain or difficulty breathing. - Related Data Previous Rx's Medication Instructions Recorded Ondansetron Odt [Zofran ODT] 4 mg PO Q8HR PRN #20 tab 08/17/16 Escitalopram [Lexapro] 10 mg PO DAILY #30 tab 10/26/17 Gabapentin [Neurontin] 400 mg PO TID #90 cap 10/26/17 OXcarbazepine [Trileptal] 300 mg PO BID #60 tab 10/26/17 OXcarbazepine [Trileptal] 600 mg PO BID #60 tab 10/26/17 Allergies Allergy/AdvReac Type Severity Reaction Status Date / Time lorazepam [From Ativan] Allergy Anaphylaxis Verified 10/25/17 17:10 tramadol Allergy Rash/Hives Verified 10/25/17 17:10 Review of Systems ROS Statement: Those systems with pertinent positive or pertinent negative responses have been documented in the HPI. ROS Other: All systems not noted in ROS Statement are negative. Past Medical History Past Medical History: Seizure Disorder Additional Past Medical History / Comment(s): Seizure disorder, anxiety, depress ion, bipolar disorder, chronic headache, right shoulder pain, osteoarthritis, scoliosis,"chronic backpain","head trauma d/t fall during seizure, stated has had 2 strokes not sure of dates, GI reflux, self-mutilation and the patient has had previous history of cutting herself History of Any Multi-Drug Resistant Organisms: MRSA Date of last positivie culture/infection: 2013, (questionably at [facility], per patient) MDRO Source:: back Past Surgical History: Section Additional Past Surgical History / Comment(s): x3 c-sections,ovarian cyst removed,hemorrhoidectomy Past Anesthesia/Blood Transfusion Reactions: No Reported Reaction Additional Past Anesthesia/Blood Transfusion Reaction / Comment(s): clauster phobia Past Psychological History: Anxiety, Bipolar, Depression Smoking Status: Current every day smoker Past Alcohol Use History: None Reported, Occasional Past Drug Use History: Marijuana - Past Family History Father History Unknown: Yes Family Medical History: Congestive Heart Failure (CHF) Mother History Unknown: Yes General Exam - General Exam Comments Initial Comments: GENERAL: Patient is well-developed and well-nourished. Patient is nontoxic and well- hydrated and is in moderate distress. ENT: Neck is soft and supple. No significant lymphadenopathy is noted. Oropharynx is clear. Moist mucous membranes. Neck has full range of motion without eliciting any pain. EYES: The sclera were anicteric and conjunctiva were pink and moist. Extraocular movements were intact and pupils were equal round and reactive to light. Eyelids were unremarkable. PULMONARY: Unlabored respirations. Good breath sounds bilaterally. No audible rales rhonchi or wheezing was noted. CARDIOVASCULAR: There is a regular rate and rhythm without any murmurs gallops or rubs. ABDOMEN: Left mid abdomen is very tender and there is rebound. SKIN: Skin is clear with no lesions or rashes and otherwise unremarkable. NEUROLOGIC: Patient is alert and oriented x3. Cranial nerves II through XII are grossly intact. Motor and sensory are also intact. Normal speech, volume and content. Symmetrical smile. MUSCULOSKELETAL: Normal extremities with adequate strength and full range of motion. Patient has some CVA tenderness on the left. LYMPHATICS: No significant lymphadenopathy is noted PSYCHIATRIC: Normal psychiatric evaluation. Course Vital Signs 04/01/19 04/01/19 11:01 13:24 Temperature 98.0 F 98.7 F Pulse Rate 120 H 110 H Respiratory 24 20 Rate Blood Pressure 149/99 O2 Sat by Pulse 100 97 Oximetry Medical Decision Making - Medical Decision Making Computed tomography scan showed some enteritis. I will back the patient was resting comfortably. Patient states she had a little bit of pain still left in the left upper quadrant but it wasn't bad. Patient also admitted to doing drugs that when her drug screen apologized for lying to me earlier. - Lab Data Result diagrams: 04/01/19 11:34 04/01/19 11:34 Lab Results 04/01/19 04/01/19 04/01/19 Range/Units 11:28 11:34 11:34 WBC 11.6 H (3.8-10.6) k/uL RBC 5.09 (3.80-5.40) m/uL Hgb 13.2 (11.4-16.0) gm/dL Hct 42.1 (34.0-46.0) % MCV 82.7 (80.0-100.0) fL MCH 25.9 (25.0-35.0) pg MCHC 31.3 (31.0-37.0) g/dL RDW 17.1 H (11.5-15.5) % Plt Count 310 (150-450) k/uL Neutrophils % 69 % Lymphocytes % 22 % Monocytes % 4 % Eosinophils % 3 % Basophils % 1 % Neutrophils # 8.0 H (1.3-7.7) k/uL Lymphocytes # 2.5 (1.0-4.8) k/uL Monocytes # 0.5 (0-1.0) k/uL Eosinophils # 0.4 (0-0.7) k/uL Basophils # 0.1 (0-0.2) k/uL Anisocytosis Slight Sodium 140 (137-145) mmol/L Potassium 4.3 (3.5-5.1) mmol/L Chloride 106 (98-107) mmol/L Carbon Dioxide 23 (22-30) mmol/L Anion Gap 11 mmol/L BUN 10 (7-17) mg/dL Creatinine 0.58 (0.52-1.04) mg/dL Est GFR (CKD-EPI)AfAm >90 (>60 ml/min/1.73 sqM) Est GFR (CKD-EPI)NonAf >90 (>60 ml/min/1.73 sqM) Glucose 98 (74-99) mg/dL Plasma Lactic Acid Jesse (0.7-2.0) mmol/L Calcium 9.8 (8.4-10.2) mg/dL Total Bilirubin 1.0 (0.2-1.3) mg/dL AST 31 (14-36) U/L ALT 19 (4-34) U/L Alkaline Phosphatase 106 (38-126) U/L Total Protein 8.7 H (6.3-8.2) g/dL Albumin 5.0 (3.5-5.0) g/dL Amylase 50 (30-110) U/L Lipase 118 (23-300) U/L Urine Color Urine Appearance (Clear) Urine pH (5.0-8.0) Ur Specific Supai (1.001-1.035) Urine Protein (Negative) Urine Glucose (UA) (Negative) Urine Ketones (Negative) Urine Blood (Negative) Urine Nitrite (Negative) Urine Bilirubin (Negative) Urine Urobilinogen (<2.0) mg/dL Ur Leukocyte Esterase (Negative) Urine RBC (0-5) /hpf Urine WBC (0-5) /hpf Ur Squamous Epith Cells (0-4) /hpf Urine Bacteria (None) /hpf Urine Yeast (Budding) (None) /hpf Urine HCG, Qual (Not Detectd) Urine Opiates Screen Detected H (NotDetected) Ur Oxycodone Screen Not Detected (NotDetected) Urine Methadone Screen Not Detected (NotDetected) Ur Propoxyphene Screen Not Detected (NotDetected) Ur Barbiturates Screen Not Detected (NotDetected) U Tricyclic Antidepress Not Detected (NotDetected) Ur Phencyclidine Scrn Not Detected (NotDetected) Ur Amphetamines Screen Not Detected (NotDetected) U Methamphetamines Scrn Detected H (NotDetected) U Benzodiazepines Scrn Detected H (NotDetected) Urine Cocaine Screen Not Detected (NotDetected) U Marijuana (THC) Screen Detected H (NotDetected) 04/01/19 04/01/19 04/01/19 Range/Units 11:34 11:34 11:34 WBC (3.8-10.6) k/uL RBC (3.80-5.40) m/uL Hgb (11.4-16.0) gm/dL Hct (34.0-46.0) % MCV (80.0-100.0) fL MCH (25.0-35.0) pg MCHC (31.0-37.0) g/dL RDW (11.5-15.5) % Plt Count (150-450) k/uL Neutrophils % % Lymphocytes % % Monocytes % % Eosinophils % % Basophils % % Neutrophils # (1.3-7.7) k/uL Lymphocytes # (1.0-4.8) k/uL Monocytes # (0-1.0) k/uL Eosinophils # (0-0.7) k/uL Basophils # (0-0.2) k/uL Anisocytosis Sodium (137-145) mmol/L Potassium (3.5-5.1) mmol/L Chloride (98-107) mmol/L Carbon Dioxide (22-30) mmol/L Anion Gap mmol/L BUN (7-17) mg/dL Creatinine (0.52-1.04) mg/dL Est GFR (CKD-EPI)AfAm (>60 ml/min/1.73 sqM) Est GFR (CKD-EPI)NonAf (>60 ml/min/1.73 sqM) Glucose (74-99) mg/dL Plasma Lactic Acid Jesse 1.0 (0.7-2.0) mmol/L Calcium (8.4-10.2) mg/dL Total Bilirubin (0.2-1.3) mg/dL AST (14-36) U/L ALT (4-34) U/L Alkaline Phosphatase (38-126) U/L Total Protein (6.3-8.2) g/dL Albumin (3.5-5.0) g/dL Amylase (30-110) U/L Lipase (23-300) U/L Urine Color Light Yellow Urine Appearance Cloudy H (Clear) Urine pH 7.0 (5.0-8.0) Ur Specific Supai 1.006 (1.001-1.035) Urine Protein Negative (Negative) Urine Glucose (UA) Negative (Negative) Urine Ketones Negative (Negative) Urine Blood Moderate H (Negative) Urine Nitrite Negative (Negative) Urine Bilirubin Negative (Negative) Urine Urobilinogen <2.0 (<2.0) mg/dL Ur Leukocyte Esterase Moderate H (Negative) Urine RBC 2 (0-5) /hpf Urine WBC 18 H (0-5) /hpf Ur Squamous Epith Cells 4 (0-4) /hpf Urine Bacteria Rare H (None) /hpf Urine Yeast (Budding) Occasional H (None) /hpf Urine HCG, Qual Not Detected (Not Detectd) Urine Opiates Screen (NotDetected) Ur Oxycodone Screen (NotDetected) Urine Methadone Screen (NotDetected) Ur Propoxyphene Screen (NotDetected) Ur Barbiturates Screen (NotDetected) U Tricyclic Antidepress (NotDetected) Ur Phencyclidine Scrn (NotDetected) Ur Amphetamines Screen (NotDetected) U Methamphetamines Scrn (NotDetected) U Benzodiazepines Scrn (NotDetected) Urine Cocaine Screen (NotDetected) U Marijuana (THC) Screen (NotDetected) Disposition Clinical Impression: Abdominal pain, Polysubstance abuse Disposition: HOME SELF-CARE Instructions (If sedation given, give patient instructions): Abdominal Pain (ED) Is patient prescribed a controlled substance at d/c from ED?: No Referrals: Cece Tran MD [Medical Doctor] - 1-2 days Time of Disposition: 14:12
[2019-04-01] MEDS ORDERED: LORazepam 2 MG/ML INJ IV STA (12:13)
[2019-04-01] MEDS ORDERED: DIAZEPAM 5 MG/ML 2 ML INJ IVP STA (12:18)
[2019-04-01 12:50] LABS: Amphetamine Screen,Urine Not Detected (NotDetected); Barbiturate Screen,Urine Not Detected (NotDetected); Benzodiazepines Screen,Urine Detected (NotDetected); Cocaine Screen,Urine Not Detected (NotDetected); Methadone Screen, Urine Not Detected (NotDetected); Opiate Screen,Urine Detected (NotDetected); Oxycodone Screen, Urine Not Detected (NotDetected); Phencyclidine Screen,Urine Not Detected (NotDetected); Tricyclic Antidepressant,Urine Not Detected (NotDetected); Urn Cannabinoid Scrn Detected (NotDetected)
--- NOTE | 2019-04-01 13:01 | CT ---
EXAMINATION TYPE: CT abdomen pelvis w con DATE OF EXAM: 04/01/2019 COMPARISON: 08/12/2016 HISTORY: Abd pain CT DLP: 630.8 mGycm CONTRAST: CT scan of the abdomen and pelvis is performed without Oral Contrast and with IV Contrast, patient in jected with 100 mL of Isovue 300. FINDINGS: LUNG BASES-: No visible nodule. No infiltrate. LIVER/GB: No calcified gallstones. No space occupying hepatic lesion. Biliary tree is of normal ca liber. PANCREAS: No inflammation. No distinct mass. SPLEEN: No splenic enlargement. No lesion seen. ADRENALS: No nodule. No thickening. KIDNEYS/BLADDER: No hydronephrosis. No nephrolithiasis. No distinct renal mass. Urinary bladder g rossly unremarkable. BOWEL: Normal appendix. Thickened loops of small bowel with mild distention noted measuring up to 2.9 cm. No free air or abscess seen. GENITAL ORGANS: No gross abnormality. LYMPH NODES: No greater than 1cm abdominal or pelvic lymph nodes are appreciated. AORTA: No significant abnormality. OSSEOUS STRUCTURES: No significant abnormality is seen. OTHER: No significant additional abnormality is seen. IMPRESSION: 1. Correlate for small bowel enteritis.
[2019-04-01 13:30] VITALS: PULSE 110; RESP 20; TEMP 98.7
[2019-04-01] MEDS ORDERED: KETOROLAC 30 MG/ML 1 ML VIAL IVP STA (13:45)
== END 2019-04-01 14:42 | disposition home or self-care (01) ==
LOC: EC 10:42
DX: F19.10 Other psychoactive substance abuse, uncomplicated (principal); K52.9 Noninfective gastroenteritis and colitis, unspecified; K21.9 Gastro-esophageal reflux disease without esophagitis; F17.200 Nicotine dependence, unspecified, uncomplicated; Z88.8 Allergy status to other drugs, medicaments and biological substances; Z88.6 Allergy status to analgesic agent; Z86.14 Personal history of Methicillin resistant Staphylococcus aureus infection
CPT/HCPCS: 36415; 80053; 82150; 83605; 83690; 85025; 81001; 81025; 80306; 87086; 74177; 99285; 96374; 96375 ×3; 96361 ×2; J3360; J2405; J1885; J1170; Q9967